=== PATIENT | female | born 1960 | race Caucasian/White ===

== ENCOUNTER 2019-10-08 05:55 | Inpatient (IN) ==
[2019-09-30 13:44] LABS: BASO# 0.01 X1000 (0.0-0.2); BASO% 0.1 % (0.0-0.8); EOS# 0.02 X1000 (0.0-0.7); EOS% 0.2 % (0.0-10.0); HEMATOCRIT 40.3 % (37.0-47.0); HEMOGLOBIN 13.2 g/dL (12.0-16.0); IMM GRAN# 0.02 X1000 (0.0-0.04); IMM GRAN% 0.2 % (0.0-0.5); LYMPH# 1.06 X1000 (1.2-3.4); MCH 28.8 PG (27-31); MCHC 32.8 g/dL (33-37); MCV 87.8 FL (81-99); MONO# 0.51 X1000 (0.11-0.59); MONO% 5.8 % (1.7-9.3); MPV 8.9 FL (7.4-10.4); NEUT% 81.7 % (42.2-75.2); PLT 253 X1000 (130-400); RBC 4.59 XMIL (4.2-5.4); RDW 13.8 % (11.5-14.5); WBC 8.82 X1000 (4.8-10.8)
--- NOTE | 2019-09-30 14:00 | EKG Report ---
Test Performed on : 09/30/2019 1:28:34 PM Test Reason : pat Blood Pressure : / mmHG Vent. Rate : 083 BPM Atrial Rate : 083 BPM P-R Int : 158 ms QRS Dur : 084 ms QT Int : 358 ms P-R-T Axes : 016 -14 027 degrees QTc Int : 420 ms Normal sinus rhythm. Normal ECG No previous ECGs available Unconfirmed Result
[2019-09-30 14:55] LABS: AGAP 12; ALB/GLOB RATIO 1.4; ALBUMIN 4.2 g/dL (3.5-5.0); ALKALINE PHOSPHATASE 173 U/L (32-104); BUN 15 mg/dL (8-22); CALCIUM 10.7 mg/dL (8.8-10.2); CHLORIDE 96 mmol/L (98-107); COSMO 280; CREATININE 0.8 mg/dL (0.5-0.9); ESTIMATED GFR > 60; GLUCOSE 194 mg/dL (70-104); GOT 22 U/L (10-30); GPT 9 U/L (10-36); POTASSIUM 4.4 mmol/L (3.5-5.1); SODIUM 137 mmol/L (136-145); TCO2 29 mmol/L (25-35); TOTAL BILIRUBIN 0.46 mg/dL (0.20-1.00); TOTAL PROTEIN 7.2 g/dL (6.3-8.3)
[2019-10-08] MEDS ORDERED: ENTEREG ONE (06:37)
[2019-10-08] MEDS ORDERED: PEPCID ONE (06:37)
[2019-10-08] MEDS ORDERED: REGLAN ONE (06:37)
[2019-10-08] MEDS ORDERED: INVANZ 1 GM/NS 1 GM/50 ML IVPB ONE (06:38)
[2019-10-08] MEDS ORDERED: LR 1,000 ML ONE ×2 (06:38→07:17)
[2019-10-08] MEDS ORDERED: DIPRIVAN 1% ONE (07:08)
[2019-10-08] MEDS ORDERED: EXPAREL 1.3% ONE (07:57)
[2019-10-08] MEDS ORDERED: MARCAINE 0.25% ONE (07:57)
[2019-10-08] MEDS ORDERED: DECADRON ONE (08:25)
[2019-10-08] MEDS ORDERED: DILAUDID ONE (08:25)
[2019-10-08] MEDS ORDERED: OFIRMEV 1000 MG/ISOTONIC SOLN 1,000 MG/100 ML BOTTLE ONE (08:25)
[2019-10-08] MEDS ORDERED: ZOFRAN ONE (08:25)
[2019-10-08] MEDS ORDERED: ZEMURON ONE (09:09)
[2019-10-08 09:29] LABS: URINE SOURCE CATH
[2019-10-08 09:35] LABS: COLOR YELLOW; GLUCOSE URINE NEGATIVE (NEGATIVE); TURBIDITY URINE CLEAR (CLEAR)
[2019-10-08 09:36] LABS: BILIRUBIN URINE SMALL (NEGATIVE); BLOOD URINE NEGATIVE (NEGATIVE); KETONE URINE 20 mg/dL (NEGATIVE); LEUKOCYTES URINE TRACE (NEGATIVE); NITRITE URINE NEGATIVE (NEGATIVE); PH URINE 5.5; PROTEIN URINE NEGATIVE (NEGATIVE); SP GRAVITY URINE > 1.030; UROBILINOGEN URINE NORMAL (NORMAL)
[2019-10-08 09:37] LABS: UR EPITHELIAL CELLS <10 /HPF (<10); URINE BACTERIA NEGATIVE /HPF; URINE RBC <10 /HPF (<10); URINE SMALL ROUND CELLS NONE SEEN; URINE WBC <10 /HPF (<10); URINE YEAST NONE SEEN
[2019-10-08] MEDS ORDERED: ROBINUL ONE (11:11)
[2019-10-08] MEDS ORDERED: NEOSTIGMINE ONE (11:11)
[2019-10-08] MEDS ORDERED: TORADOL ONE (11:13)
[2019-10-08] MEDS ORDERED: ZOFRAN IV PRN (12:52)
[2019-10-08] MEDS: LR 1,000 ML IV SCH ×2 (12:55→22:14)
[2019-10-08] MEDS: ULTRAM PO PRN ×2 (13:58→22:13)
[2019-10-08] MEDS: OFIRMEV 1000 MG/ISOTONIC SOLN 1,000 MG/100 ML BOTTLE IV SCH ×2 (17:08→22:14)
--- NOTE | 2019-10-08 21:38 | OPERATIVE NOTE ---
PROCEDURE DATE: 10/08/2019 PREOPERATIVE DIAGNOSIS: Metastatic right colon cancer. POSTOPERATIVE DIAGNOSES: Metastatic right colon cancer. PROCEDURE PERFORMED: 1. Robot-assisted laparoscopic right colectomy. 2. Laparoscopic wedge resection of segment IV liver lesion. SURGEON: Devan Richard MD. ESTIMATED BLOOD LOSS: 20 mL. SPECIMENS: 1. Right colon. 2. Portion of segment IV of liver. 3. Ascitic fluid for cytology. ANESTHESIA: General with TAP block. INDICATIONS: A 58-year-old female who was found to have a right colon mass. She had some changes in her bowel movements, bleeding, and staging CT scan showed numerous large right hepatic lesions concerning for metastasis. OPERATIVE FINDINGS: There was approximately 800 mL of straw-colored ascites within the abdomen. There was bulky tumor noted within the right lobe of the liver. The left lobe appeared normal. There were no peritoneal implants. There was a visualized mass in the proximal right colon/cecum. OPERATIVE NOTE: Risks, benefits, and alternatives were discussed with the patient, and she consented to the procedure. Seen preoperatively, surgical site was confirmed. She was taken to the operating room, placed in supine position, general anesthesia was induced. A TAP block was performed by Anesthesia colleagues. Preincision antibiotics were administered. Her abdomen was prepped with chlorhexidine solution and draped in the usual fashion. After time-out, we planned our camera trocar just superior and left lateral to the umbilicus, approximately 23 cm from the target anatomy. We carried this down incising the anterior rectus sheath, splitting the fibers. We incised the posterior sheath and placed the camera trocar. We then insufflated the abdomen. She tolerated this well. There was no injury to underlying structures. We then placed a 12 mm robotic trocar in the left upper quadrant and another robotic trocar just left lateral to the midline, lateral to the falciform ligament, below the costal margin. Accessory 5 mm trocar was placed in the left lower quadrant and another robotic trocar was placed in the lower midline of the abdomen. She was then flexed and placed in left side down in slight Trendelenburg. We identified the terminal ileum and cecum. We elevated this, identifying the pedicle, and using the vessel sealer, we divided the pedicle highly. We continued our czlffg-kr-lbdegyg dissection, protecting the duodenum, identifying this along the course, and completing the thdkqw-[id number] dissection. At this point, we carried our mesenteric dissection up to the terminal ileum to our planned transection point, and then turned our attention to the distal transverse colon. We entered the lesser sac, taking the omentum off and took down the hepatic flexure lateral attachments. Stapler was used to divide the terminal ileum. We then encircled the transverse colon distally with a [place] drain. At this point, we administered Firefly Fluorescence and confirmed adequate perfusion of our distal ileum and our distal transection point of the colon. At this point, 2 fires of blue-load robotic stapler were used to divide the distal colon. This completed our resection in an antiperistaltic fashion, we approximated the ileum with the transverse colon. Epiploic appendages were removed with hot artem. A colotomy and enterotomy were made, and then stapled adjy-gy-dktk anastomosis was performed with a 45 mm blue-load stapler. We then closed the common enterotomy after identifying the corners, with a running 3-0 absorbable V-Loc suture, and then ran it in a retrograde fashion, imbricating the suture line. The anastomosis was patent, was well perfused, and there was no tension whatsoever. At this point, we turned our attention to segment IV of liver using hot artem, and placed the Bovie on 50 and we excised a computer help desk representative wedge resection of the bulky right-sided liver lesion. It was also noted at the beginning of the case, we suctioned out the clear ascites and sent this for cytology. We removed the liver biopsy. A locking laparoscopic clamp was placed on the terminal ileum side. We extended our camera trocar, desufflated, and removed the trocars. After Solo wound protector was placed, we removed as specimen, passing it off. The specimen extraction site was closed with #1 PDS suture. The skin was closed with 4-0 Monocryl. Dermabond was applied. Counts were correct. She tolerated it well. During the case, all of the retroperitoneal structures were protected along their course. cc: Devan Richard MD
[2019-10-08] MEDS: PERIDEX MT SCH (22:13)
[2019-10-09] MEDS: OFIRMEV 1000 MG/ISOTONIC SOLN 1,000 MG/100 ML BOTTLE IV SCH ×2 (03:12→09:57)
[2019-10-09 07:22] LABS: HEMATOCRIT 35.6 % (37.0-47.0); HEMOGLOBIN 11.9 g/dL (12.0-16.0); MCH 29.4 PG (27-31); MCHC 33.4 g/dL (33-37); MCV 87.9 FL (81-99); MPV 8.9 FL (7.4-10.4); RBC 4.05 XMIL (4.2-5.4); RDW 14.1 % (11.5-14.5); WBC 11.01 X1000 (4.8-10.8)
[2019-10-09 07:48] LABS: AGAP 11; BUN 13 mg/dL (8-22); CALCIUM 9.3 mg/dL (8.8-10.2); CHLORIDE 97 mmol/L (98-107); COSMO 269; CREATININE 0.8 mg/dL (0.5-0.9); ESTIMATED GFR > 60; GLUCOSE 106 mg/dL (70-104); POTASSIUM 4.5 mmol/L (3.5-5.1); SODIUM 134 mmol/L (136-145); TCO2 26 mmol/L (25-35)
[2019-10-09] MEDS: PERIDEX MT SCH ×2 (08:15→21:55)
[2019-10-09] MEDS: LOVENOX SUBQ SCH (08:15)
[2019-10-09] MEDS: ENTEREG PO SCH ×2 (08:16→21:56)
[2019-10-09] MEDS: MAG-OX PO SCH (08:16)
[2019-10-09] MEDS: LR 1,000 ML IV SCH ×4 (09:06→23:26)
--- NOTE | 2019-10-09 13:42 | PROGRESS NOTE ---
DATE: 10/09/2019 SUBJECTIVE: Kasie Moreno is now postop day one from a robotic right colon resection per Dr. Richard for colon cancer. She is awake, cooperative. She has been up. She still has a Chen catheter tube in place. She is receiving IV fluids and clear liquids. All her incisions are intact. Her abdomen is slightly distended, but not tightly so, and overall I think she is doing well status post robotic right colon resection. cc: MD Devan Aden MD
[2019-10-09] MEDS: ULTRAM PO PRN (19:03)
[2019-10-09] MEDS ORDERED: FLU VACCINE IM ONE (21:03)
[2019-10-10] MEDS: MAG-OX PO SCH (08:37)
[2019-10-10] MEDS: PERIDEX MT SCH ×2 (08:37→22:06)
[2019-10-10] MEDS: LOVENOX SUBQ SCH (08:38)
[2019-10-10] MEDS: ENTEREG PO SCH (08:38)
[2019-10-10] MEDS: LR 1,000 ML IV SCH ×2 (10:16→19:50)
--- NOTE | 2019-10-10 11:59 | PROGRESS NOTE ---
DATE: 10/10/2019 Ms. Kasie Moerno is a 58-year-old white female who is now postop day 2 from a robotic-assisted right colon per Dr. Richard. Overall, I think her postoperative convalescence has been normal. She has been on clear liquids. She has tolerated that. She has had some bowel activity, and so I will advance her diet to a heart healthy diet. Will stop her Entereg. We have decreased her IV fluids. Her abdomen is mostly soft. There is no undue tenderness. Her heart rate is 78, blood pressure 120/68, O2 saturation 96%, she is afebrile on no antibiotics. cc: MD Devan Aden MD
[2019-10-10] MEDS: ULTRAM PO PRN (12:08)
[2019-10-11] MEDS: LR 1,000 ML IV SCH (06:48)
[2019-10-11] MEDS: PERIDEX MT SCH (08:42)
[2019-10-11] MEDS: MAG-OX PO SCH (08:42)
[2019-10-11] MEDS: LOVENOX SUBQ SCH (08:42)
[2019-10-11 12:08] VITALS: BP 121/66
[2019-10-11] MEDS: ULTRAM PO PRN (13:04)
--- NOTE | 2019-10-12 15:32 | DISCHARGE SUMMARY ---
ADMISSION DATE: 10/08/2019 DISCHARGE DATE: 10/11/2019 ADMITTING DIAGNOSIS: Metastatic colon cancer of the right colon. POSTOP: Metastatic colon cancer of the right colon. PROCEDURE PERFORMED: Robot assisted laparoscopic right hemicolectomy with liver biopsy. HISTORY OF PRESENT ILLNESS: This is a 58-year-old female who was found to have a large right colon mass with right-sided hepatic metastasis. She had impending obstruction, obstructive symptoms, and intermittent bleeding. HOSPITAL COURSE: The patient was taken to the operating room on the day of her procedure, which was 10/08/2019 for above procedure. For details, please see dictated record. Postoperatively, she was admitted to my service. Chen was removed on postop day 1. She was started on prophylactic Lovenox. On postoperative day 1, her postoperative labs were appropriate. We advanced her diet. She was able ambulate and pain was controlled with Ofirmev and Ultram. She is voiding without difficulty. She had return of bowel function on postop day 2 and was felt safe for discharge. On day 3, her incisions were intact. She did have some bruising around her lower midline incision, but the expected amount. Pathology is pending. DISPOSITION: Home to self-care. Discharge instructions were given in written and verbal format. DISCHARGE MEDICATION: She will continue her home medication and was given a prescription for Ultram and Zofran. DISCHARGE DIET: GI soft as tolerated. cc: Devan Richard MD
== END 2019-10-11 14:42 | disposition home or self-care (01) | DRG 330 ==
LOC: SURHOLD 05:55 → 4N 12:52
PROVIDERS: ADMIT Surgery; ATTEND Surgery

== ENCOUNTER 2019-12-19 09:37 | Inpatient (IN) ==
[2019-12-19] MEDS ORDERED: NS 1,000 ML IV ONE (10:12)
--- NOTE | 2019-12-19 10:53 | Diag Imaging Result Doc PS360 ---
CHEST-1 VIEW - 12/19/2019 INDICATION: "sepsis" COMPARISON: 10/18/2019 FINDINGS: There is a right chest port in good position. Lung volumes are critically low with some bibasilar crowding. Otherwise, no definite infiltrates. Heart size and pulmonary vascularity is normal. IMPRESSION: Critically low lung volumes with bibasilar crowding. Electronically signed by Jevon Chino 12/19/2019 10:50 AM
[2019-12-19 11:01] LABS: BASO# 0.05 X1000 (0.0-0.2); BASO% 0.4 % (0.0-0.8); EOS# 0.01 X1000 (0.0-0.7); EOS% 0.1 % (0.0-10.0); HEMATOCRIT 35.3 % (37.0-47.0); HEMOGLOBIN 11.3 g/dL (12.0-16.0); IMM GRAN# 0.07 X1000 (0.0-0.04); IMM GRAN% 0.6 % (0.0-0.5); LYMPH% 14.7 % (20.5-51.1); MCH 26.5 PG (27-31); MCV 82.9 FL (81-99); MONO% 10.6 % (1.7-9.3); MPV 8.6 FL (7.4-10.4); NEUT# 8.98 X1000 (1.4-6.5); NEUT% 73.6 % (42.2-75.2); PLT 508 X1000 (130-400); RBC 4.26 XMIL (4.2-5.4); RDW 17.5 % (11.5-14.5); WBC 12.21 X1000 (4.8-10.8)
[2019-12-19 11:12] LABS: INR 1.57; PROTIME 19.1 Seconds (11.0-16.0)
[2019-12-19 11:13] LABS: PTT 33.7 Seconds (22.3-41.8)
[2019-12-19 11:25] LABS: AGAP 14; ALBUMIN 2.8 g/dL (3.5-5.0); ALKALINE PHOSPHATASE 331 U/L (32-104); BUN 21 mg/dL (8-22); CHLORIDE 94 mmol/L (98-107); CK PROFILE 16 U/L (24-173); COSMO 271; CREATININE 0.8 mg/dL (0.5-0.9); ESTIMATED GFR > 60; GLUCOSE 133 mg/dL (70-104); GOT 52 U/L (10-30); GPT 29 U/L (10-36); POTASSIUM 4.2 mmol/L (3.5-5.1); SODIUM 133 mmol/L (136-145); TCO2 25 mmol/L (25-35); TOTAL BILIRUBIN 0.69 mg/dL (0.20-1.00); TOTAL PROTEIN 5.6 g/dL (6.3-8.3)
--- NOTE | 2019-12-19 12:33 | Diag Imaging Result Doc PS360 ---
CT ABD/PELVIS W/IV CONT ONLY - 12/19/2019 INDICATION: hx colon resection, no BM COMPARISON: 09/13/2019 FINDINGS: There is some mild patchy atelectasis in both lung bases. There is some sort of drainage catheter in the peritoneum terminating in the right lower quadrant. In spite of this, there is a moderate to large amount of ascites. There are numerous large hypoenhancing liver masses similar to prior. About 40% of the liver parenchyma is replaced. The liver is overall atrophic. There is significant splenomegaly. The spleen measures 15 x 5.5 cm. The splenic vein, main portal vein, and superior mesenteric vein are patent. The middle hepatic vein is most likely occluded by the metastases. The left and right hepatic veins appear to be grossly patent. No bowel obstruction or free air. No significant constipation. There are bowel resection changes at the right colon. Urinary bladder, uterus, and rectum are normal. There is moderate retroperitoneal lymphadenopathy similar to prior. There are moderate degenerative changes of the spine. No acute or suspicious bony lesion. IMPRESSION: Worsening ascites despite a peritoneal drain. Numerous other findings are grossly stable from prior. No bowel obstruction or significant constipation. This exam was performed using automated exposure control, adjustment of mA or kV according to patient size, and/or use of iterative reconstruction technique Electronically signed by Jevon Chino 12/19/2019 12:31 PM
[2019-12-19] MEDS ORDERED: NS 1,000 ML, NS 1,000 ML IV ONE ×2 (12:53)
[2019-12-19 14:15] LABS: URINE SOURCE CLEAN CATCH
[2019-12-19] MEDS ORDERED: NS 1,000 ML ONE (14:18)
[2019-12-19 14:23] LABS: BILIRUBIN URINE NEGATIVE (NEGATIVE); BLOOD URINE NEGATIVE (NEGATIVE); COLOR YELLOW; GLUCOSE URINE NEGATIVE (NEGATIVE); KETONE URINE NEGATIVE (NEGATIVE); LEUKOCYTES URINE NEGATIVE (NEGATIVE); NITRITE URINE NEGATIVE (NEGATIVE); PROTEIN URINE TRACE mg/dL (NEGATIVE); TURBIDITY URINE CLEAR (CLEAR); UROBILINOGEN URINE NORMAL (NORMAL)
[2019-12-19 14:25] LABS: UR EPITHELIAL CELLS <10 /HPF (<10); URINE BACTERIA NEGATIVE /HPF; URINE RBC <10 /HPF (<10); URINE WBC <10 /HPF (<10)
--- NOTE | 2019-12-19 15:37 | PROVIDER DOCUMENTATION ---
This chart was entered by Shalonda Cleary Scribe, acting as scribe for Kendall Alcantara MD. HPI-General Adult - General Chief Complaint: Weakness Stated Complaint: NO ENERGY CONSTIPATED Time Seen by Provider: 12/19/19 09:56 Source: patient, family () Allergies/Adverse Reactions: Patient Allergies Allergy/AdvReac Type Severity Reaction Status Date / Time No Known Allergies Allergy Verified 12/07/19 09:48 Home Medications: Home Medication List Medication Instructions Recorded Confirmed Last Taken Type Zolpidem [Ambien] 5 mg PO QHS 09/30/19 12/07/19 12/06/19 History Ondansetron [Zofran] 4 mg PO Q4H PRN PRN #10 tab 10/11/19 12/07/19 12/07/19 06:30 Rx Tramadol [Ultram] 50 mg PO Q6H PRN PRN #30 tab 10/11/19 12/07/19 1 Week Ago Rx ~11/19/19 Amlodipine [Norvasc] 5 mg PO DAILY 12/03/19 12/07/19 12/07/19 06:30 History Hydrocodone/Acetaminophen [[place] 1 ea PO PRN PRN 12/03/19 12/07/19 12/07/19 06:30 History 7.5-325 Tablet] - History of Present Illness -Gen Adult Nature of Presenting Problems: 58 y/o female with history of Cancer of the bile duct and recent history of partial colectomy in 08/2019 presents to the ED with c/o increasing weakness and constipation times three days. states he has had to lift the patient to her feet several times. The patient also states abdominal pain with constipation with unknown timing of last BM as well as increasing SOB. She states she took two stool softeners Friday, 2 laxatives Friday and then 2 stool softeners today without BM. NKDA. Location of Pain/Injury: reports: abdomen, generalized Onset/Duration: reports: 3 days ago (worsening) Timing: reports: getting worse Context/Activities at Onset: reports: light activity Associated Symptoms: reports: constipation, shortness of breath, weakness, trouble walking. denies: fever/chills, vomiting Review of Systems - Adult - REVIEW OF SYSTEMS - ADULT Constitutional: reports: fatique, other (increasing weakness). denies: chills, fever Eyes: reports: no symptoms reported Ears, Nose, Mouth & Throat: reports: no symptoms reported Cardiovascular: denies: chest pain, palpitations, syncope Respiratory: reports: shortness of breath. denies: hemoptysis, wheezing Gastrointestinal: reports: constipation. denies: diarrhea, nausea, vomiting Genitourinary: denies: dysuria, discharge, frequency, hematuria Musculoskeletal: reports: no symptoms reported Integumentary: reports: no symptoms reported Neurological: reports: ataxia, other (increasing weakness). denies: dizziness/vertigo, headache/migraines, slurred speech, syncope Psychiatric: reports: no symptoms reported Endocrine: reports: no symptoms reported Hematologic/Lymphatic: reports: no symptoms reported Allergic/Immunologic: reports: no symptoms reported All Other Systems: Reviewed and Negative Past History - Adult - PAST MEDICAL HISTORY-ADULT Review of Records: reports: Old Records Reviewed, Nursing Assessment Review, Medications Reviewed - IMMUNIZATION STATUS Childhood Immunizations: See Nurse Assessment Flu Vaccine: See Nurse Assessment - SOCIAL HISTORY Smoking: non-smoker Living Situation: family Physical Exam-General - PHYSICAL EXAM-ADULT Initial Vital Signs Reviewed: Yes - CONSTITUTIONAL General Appearance: alert. negative: appears well - EYES Eyes: pale conjunctivae - RESPIRATORY Respiratory: lungs clear, normal breath sounds. negative: rhonchi, wheezing - CARDIOVASCULAR Cardiovascular: no edema, tachycardia - GASTROINTESTINAL (ABDOMEN) Abdominal Exam: abnormal bowel sounds (decreased), distended, other (bandage in place left lower quadrant) - SKIN Integumentary: negative: diaphoresis - NEUROLOGIC Neurologic: grossly normal Progress - PLAN OF CARE/RESULTS Progress/Plan/Lab Results: Vital Signs - 8 hr 12/19/19 09:41 Temperature 97.9 F Pulse Rate 121 H Respiratory Rate 20 Blood Pressure 106/69 O2 Sat by Pulse Oximetry 98 Result Diagrams: 12/19/19 10:35 12/19/19 10:35 - EKG 1 Time of EKG reading by physician:: 10:28 EKG Read and Signed by:: Kendall Alcantara EKG Interpretation (*Must complete 3 of following elements*): Abnormal Rate: 108 Rhythm: sinus tachycardia Comments: low voltage QRS,inferior & possible anterolateral infarct age undetermined - XRAY 1 XRAY Study: Chest Impression: Abnormal (CHEST-1 VIEW - 12/19/2019 INDICATION: "sepsis" COMPARISON: 10/18/2019 FINDINGS: There is a right chest port in good position. Lung volumes are critically low with some bibasilar crowding. Otherwise, no definite infiltrates. Heart size and pulmonary vascularity is normal. IMPRESSION: Critically low lung volumes with bibasilar crowding. Electronically signed by Jevon Chino 12/19/2019 10:50 AM) - CT/MRI 1 CT Study: Abdomen, Pelvis Impression: Abnormal (CT ABD/PELVIS W/IV CONT ONLY - 12/19/2019 INDICATION: hx colon resection, no BM COMPARISON: 09/13/2019 FINDINGS: There is some mild patchy atelectasis in both lung bases. There is some sort of drainage catheter in the peritoneum terminating in the right lower quadrant. In spite of this, there is a moderate to large amount of ascites. There are numerous large hypoenhancing liver masses similar to prior. About 40% of the liver parenchyma is replaced. The liver is overall atrophic. There is significant splenomegaly. The spleen measures 15 x 5.5 cm. The splenic vein, main portal vein, and superior mesenteric vein are patent. The middle hepatic vein is most likely oc cluded by the metastases. The left and right hepatic veins appear to be grossly patent. No bowel obstruction or free air. No significant constipation. There are bowel resection changes at the right colon. Urinary bladder, uterus, and rectum are normal. There is moderate retroperitoneal lymphadenopathy similar to prior. There are moderate degenerative changes of the spine. No acute or suspicious [place] lesion. IMPRESSION: Worsening ascites despite a peritoneal drain. Numerous other findings are grossly stable from prior. No bowel obstruction or significant constipation. This exam was performed using automated exposure control, adjustment of mA or kV according to patient size, and/or use of iterative reconstruction technique Electronically signed by Jevon Chino 12/19/2019 12:31 PM) - CONSULTS/PCP/HOSPITALIST Notification #1 *Consult/PCP/Hospitalist*: Hospitalist Time Discussed: 15:30 Consult Disposition: Will see in ED, Admit Departure - Departure Date of Disposition Decision: 12/19/19 Time of Disposition Decision: 14:45 DIAGNOSIS: Weakness, Bile duct cancer Disposition: ADMITTED INPATIENT 09 Certified Medical Emergency: Emergent Condition: Fair Referrals and Follow-Ups: Esvin Richard MD [Primary Care Provider] - - Critical Care Note This patient required my direct & personal management of CC.: No Attestation - Physician/ GIULIANO Attestation Patient care was provided by Advanced Practice Provider:: No The physician spent face to face time with patient:: Yes Advanced Practice Provider documentation review:: Supervising physician onsite and consulted in the evaluation and care of this patient. The physician did have a face to face encounter with the patient. This chart was documented by the indicated scribe, (Shalonda Cleary, Br[place]) and accurately reflects the services I performed and decisions made by me, Kendall Alcantara MD, as attested by the provider's signature.
[2019-12-19] MEDS ORDERED: DULCOLAX PR ONE (15:51)
[2019-12-19 16:49] LABS: BASO# 0.04 X1000 (0.0-0.2); BASO% 0.4 % (0.0-0.8); EOS# 0.04 X1000 (0.0-0.7); EOS% 0.4 % (0.0-10.0); HEMATOCRIT 31.4 % (37.0-47.0); HEMOGLOBIN 10.1 g/dL (12.0-16.0); IMM GRAN# 0.06 X1000 (0.0-0.04); IMM GRAN% 0.6 % (0.0-0.5); LYMPH# 2.49 X1000 (1.2-3.4); LYMPH% 22.9 % (20.5-51.1); MCH 26.7 PG (27-31); MCHC 32.2 g/dL (33-37); MCV 83.1 FL (81-99); MONO# 1.36 X1000 (0.11-0.59); MONO% 12.5 % (1.7-9.3); MPV 8.3 FL (7.4-10.4); NEUT# 6.88 X1000 (1.4-6.5); NEUT% 63.2 % (42.2-75.2); PLT 463 X1000 (130-400); RBC 3.78 XMIL (4.2-5.4); RDW 17.5 % (11.5-14.5); WBC 10.87 X1000 (4.8-10.8)
[2019-12-19] MEDS ORDERED: ZOFRAN IV PRN (16:53)
[2019-12-19] MEDS ORDERED: ALBUMIN 25% IV ONE (16:54)
[2019-12-19] MEDS ORDERED: NON-FORMULARY BULK MED ONE (18:15)
[2019-12-19] MEDS ORDERED: MISC. PHARMACY COMMUNICATION SCH (18:15)
[2019-12-19] MEDS: MYCELEX TROCHE PO SCH ×2 (18:59→20:56)
--- NOTE | 2019-12-19 19:33 | HISTORY AND PHYSICAL ---
ADDENDUM: Patient seen and examined by me face to face, all the laboratory, vital signs and images were reviewed. This patient is a 58-year-old female with a past medical history of pancreatobiliary carcinoma, she recently had a surgery done in August 2019, she has been complaining of abdominal distention, constipation and generalized weakness, she has a drain that has been placed on her abdomen and we are trying to do to do some drainage of the ascitic fluid but the problem is that we are looking for the special bottles for that kind of drain that she has, in the other hand she has some stools, we will try to give her an enema to see if that helps, we have consulted Dr. Turcios. Apparently she has an appointment for chemotherapy tomorrow morning. On my physical exam, her abdomen is distended. She is jaundiced. She does have generalized weakness and generalized abdominal pain, is at the bedside. I agree with the rest of the nurse practitioner's assessment and plan. cc: Nir Ponce MD
--- NOTE | 2019-12-19 21:24 | HISTORY AND PHYSICAL ---
CHIEF COMPLAINT: Weakness, constipation. HPI: This is a 58-year-old female with a prior history of metastatic colon cancer to the liver who is receiving chemotherapy per Dr. Genia Turcios. She presents complaining of generalized weakness, constipation that began 3 days ago despite a bowel regimen. She states that she had 1 small hard stool last night. She also complains of abdominal distention secondary to ascites, she underwent a ultrasound guided paracentesis on November 05 for 5 L of fluid removed, on the 26 of November she underwent another ultrasound-guided paracentesis for 7 L removed, on the she had a ultrasound-guided peritoneal drainage catheter placed to remove the fluid at home. The patient states that insurance will not pay for the bottles and that it is 1000 dollars for either 9 or [address] Turcios's office did give her 9 bottles and they have been removing a liter twice a week in hopes that Dr. Turcios will be able to they state that Dr. Turcios's office is attempting to talk to the insurance company to see if they can get them change their mind to pay for the bottles. PAST MEDICAL HISTORY: 1. Metastatic colon cancer to the liver. 2. Hypertension. 3. Fibromyalgia. PAST SURGICAL HISTORY: Colon resection. SOCIAL HISTORY: She is . She denies alcohol, tobacco, or illicit drug use. ALLERGIES: No stated allergies. HOME MEDICATIONS: A list will be obtained by the nursing staff and once verified will review and restart as appropriate. REVIEW OF SYSTEMS: Discussed with the patient with pertinent positives stated in the HPI. She denied any syncope or dizziness. Any chest pain or palpitations, any cough, fevers or chills, any nausea, vomiting, any diarrhea, any black or bloody vomitus or stools, hematuria, dysuria, frequency urgency. PHYSICAL EXAMINATION: GENERAL: This is a 58-year-old female who is lying on the stretcher in no distress. VITAL SIGNS: Blood pressure is 103/80 with a heart rate of 100, respirations are 16, temperature is 97.9 degrees with O2 saturations 98 on room air. HEENT: Head is normocephalic, atraumatic. Mucous membranes are dry. NECK: Supple with trachea midline. CARDIOVASCULAR: Regular rate and rhythm. She is tachycardic, S1 and S2 appreciated. Peripheral pulses are palpable x4 extremities. PULMONARY: Breath sounds are clear with no increased work of breathing. Chest rises and falls symmetric respiration. GASTROINTESTINAL: Abdomen large with bowel sounds decreased. She does have a bandage that is dry and intact to as. NEUROLOGIC: She is alert and oriented. LABS: WBC is 12.2 with hemoglobin 11.3, hematocrit 35.3 and platelets of 508,000. INR is 1.57. Sodium 133, potassium 4.2, BUN 21, creatinine 0.8, glucose of 133, albumin is 2.8. Urinalysis is essentially negative. Blood cultures are pending. ASSESSMENT AND PLAN: 1. Constipation. 2. Generalized weakness. 3. Metastatic right colon cancer, liver cancer. 4. Ascites. PLAN: The patient will be admitted to the hospital. We will be placed on telemetry for close monitoring. Keep a strict I and O, will review her home medications and continue as appropriate adding Zofran for nausea. We will check a CBC, CMP, mag and phosphorus in the morning. We will consult [facility] as well as Dr. Turcios. We are attempting to find bottles that will fit the patient's shunt so that she can drain her abdomen. Once bottles are available the patient and can drain her abdomen, we have ordered albumin to be given prior to this. Plan was discussed with Dr. Stallworth. Further treatments pending hospital course. Dictated by NINA Ruiz for Nir Ponce MD cc: NINA Ruiz MD
[2019-12-20] MEDS ORDERED: VANCOMYCIN IV PER PHARMACY MISC SCH (01:00)
[2019-12-20] MEDS ORDERED: VANCOMYCIN 1,800 MG in NS 500 ML IV ONE (02:00)
[2019-12-20 07:26] LABS: BASO# 0.02 X1000 (0.0-0.2); BASO% 0.3 % (0.0-0.8); EOS# 0.01 X1000 (0.0-0.7); EOS% 0.1 % (0.0-10.0); HEMATOCRIT 28.3 % (37.0-47.0); HEMOGLOBIN 8.8 g/dL (12.0-16.0); IMM GRAN# 0.03 X1000 (0.0-0.04); IMM GRAN% 0.4 % (0.0-0.5); LYMPH# 1.41 X1000 (1.2-3.4); LYMPH% 19.5 % (20.5-51.1); MCH 26.3 PG (27-31); MCHC 31.1 g/dL (33-37); MCV 84.5 FL (81-99); MONO# 0.73 X1000 (0.11-0.59); MONO% 10.1 % (1.7-9.3); MPV 8.3 FL (7.4-10.4); NEUT# 5.02 X1000 (1.4-6.5); NEUT% 69.6 % (42.2-75.2); PLT 449 X1000 (130-400); RBC 3.35 XMIL (4.2-5.4); RDW 17.5 % (11.5-14.5); WBC 7.22 X1000 (4.8-10.8)
--- NOTE | 2019-12-20 07:41 | EKG Report ---
Test Performed on : 12/19/2019 10:20:08 AM Test Reason : ED. NO EKG ORDER FOR MUSE Blood Pressure : / mmHG Vent. Rate : 108 BPM Atrial Rate : 108 BPM P-R Int : 144 ms QRS Dur : 078 ms QT Int : 330 ms P-R-T Axes : 016 -26 011 degrees QTc Int : 442 ms Sinus tachycardia. Low voltage QRS Inferior infarct , age undetermined Possible Anterolateral infarct , age undetermined Abnormal ECG When compared with ECG of 30-SEP-2019 13:28, Borderline criteria for Anterolateral infarct are now present No significant change was found Unconfirmed Result
[2019-12-20 07:42] LABS: AGAP 11; ALB/GLOB RATIO 1.4; ALKALINE PHOSPHATASE 219 U/L (32-104); BUN 16 mg/dL (8-22); CALCIUM 8.6 mg/dL (8.8-10.2); CHLORIDE 101 mmol/L (98-107); COSMO 276; CREATININE 0.6 mg/dL (0.5-0.9); ESTIMATED GFR > 60; GLUCOSE 125 mg/dL (70-104); GOT 24 U/L (10-30); GPT 18 U/L (10-36); MAGNESIUM 1.9 mg/dL (1.5-2.7); PHOSPHORUS 2.8 mg/dL (2.7-4.5); POTASSIUM 3.5 mmol/L (3.5-5.1); SODIUM 137 mmol/L (136-145); TCO2 25 mmol/L (25-35); TOTAL BILIRUBIN 0.73 mg/dL (0.20-1.00); TOTAL PROTEIN 5.1 g/dL (6.3-8.3)
[2019-12-20] MEDS: MYCELEX TROCHE PO SCH ×5 (09:33→20:56)
[2019-12-20] MEDS: ZYVOX 600 MG/D5W 600 MG/300 ML IVPB IV SCH ×2 (10:56→20:56)
[2019-12-20] MEDS ORDERED: DULCOLAX PR PRN (12:54)
--- NOTE | 2019-12-20 13:19 | PROGRESS NOTE ---
DATE: 12/20/2019 SUBJECTIVE: This patient feels better compared with yesterday. She still has abdominal distention. Two liters of fluid has been removed yesterday. We need to find out options to remove this fluid from her belly. We may need to use a large syringe instead of finding the bottles for her. Hematology/Oncology Department on board. It looks like she also was constipated, and she feels better now after getting some enemas. I will put her on MiraLAX daily, and I will monitor. OBJECTIVE: Vital Signs: Temperature 97.8 degrees, pulse 101, respiratory rate 16, blood pressure 116/75, oxygen saturation 97% on room air. HEENT: Head normocephalic. No trauma. PERRLA. Neck: Supple. No JVD. No masses. Central trachea. Chest: Clear to auscultation. Some crepitus at the bases. Abdomen: Distended, but it is soft compared with yesterday. Decreased bowel sounds, but present. She does have ascites. Extremities: Trace edema. No clubbing, no cyanosis. Neurological: The patient is awake, alert. She is oriented x3. No focal deficits. LABORATORY DATA: WBC 7.2, hemoglobin 8.8, hematocrit 28.3, platelets 449,000. Sodium 137, potassium 3.5, chloride 101, bicarbonate 25, BUN 16, creatinine 0.6, glucose 125, calcium 8.6. AST 24, ALT 18, alkaline phosphatase 219, albumin 3. ASSESSMENT AND PLAN: 1. Abdominal distention and pain, likely due to her severe ascites. Two liters of fluid has been removed yesterday. She does have a catheter in place. The problem is that she cannot afford the special bottles for that kind of catheter. What I would probably do is to remove the fluid with a large syringe so she can get decompressed. 2. 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 We will wait for more recommendations. 3. Constipation, resolved after using some enemas. I will put this patient on MiraLAX and also suppositories as needed. 4. Normocytic anemia, stable. 5. Generalized weakness and physical deconditioning. Physical Therapy has been consulted. 6. Ascites, likely due to the metastatic cancer. 7. Blood culture that showed gram-positive cocci, 1/2. Likely, this is a contamination, but I will put this patient on Zyvox until I have the final result. cc: Nir Ponce MD
[2019-12-20] MEDS: MIRALAX PO SCH (15:06)
--- NOTE | 2019-12-20 19:42 | HEMO/ONC CONSULTATION ---
DATE: 12/20/2019 SOURCE OF CONSULTATION: Hospitalist service. REASON FOR CONSULTATION: Patient known. HISTORY OF PRESENT ILLNESS: Ms. 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 She is currently status post cycle 1 of cisplatin and Gemzar. Patient was actually due to begin cycle 2 of chemotherapy today. The patient presented to the emergency department at [facility] yesterday complaining of rather intense abdominal pain as well as generalized weakness. She was found to have impaction, which has now improved with the use of some enemas. She also had rather significant abdominal distention which was secondary to severe ascites. Patient is status post peritoneal catheter placement. However, she is having issues with draining the catheter due to not having enough bottles provided. She was in the office last week and we did recommend that she try to only pull off about a liter or so, maybe twice per week. Since being here, they have pulled off 2 L and got her bowels moving, and she is already feeling quite a bit better. PAST MEDICAL HISTORY: 1. 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 2. Hypertension. 3. Fibromyalgia. PAST SURGICAL HISTORY: Colon resection. SOCIAL HISTORY: Patient is . She denies any alcohol, tobacco, or illicit drug use. FAMILY HISTORY: Positive for breast cancer as well as fibromyalgia. REVIEW OF SYSTEMS: Twelve point review of systems has been completed and negative except for as expressed in HPI. PHYSICAL EXAMINATION: Vital Signs: Temperature 97.8 degrees, heart rate 101, respirations 16, blood pressure 116/75, O2 saturation 97% on room air. General: This is an ill- appearing female lying in the hospital bed with her at bedside. Head: Normocephalic, atraumatic. Eyes: Pupils equal, round, reactive. Ears, nose, throat, neck, mouth: Mucosa appears to be dry. Gross auditory acuity is intact. Cardiovascular: Tachycardia noted, but regular rhythm. Respiratory: Chest is clear. Abdomen: Distended with ascites, but is soft to touch at this point. She has normoactive bowel sounds noted. Musculoskeletal: No obvious bony abnormalities. Extremities: She has no edema. She has no ankle edema. Neurologic: Patient is alert and oriented with no focal motor deficits noted at this time. LABS AND STUDIES: White blood cells are 7.22, hemoglobin 8.8, platelet count is 449,000. Sodium 137, potassium 3.5, chloride 101, CO2 25, BUN 16, creatinine 0.6, glucose 125. CT of abdomen and pelvis shows worsening ascites, but otherwise is stable. ASSESSMENT AND PLAN: 1. Intrahepatic cholangiocarcinoma. We are treating the patient with cisplatin and Gemzar as an outpatient. Treatment will be on hold while she is here in the hospital. Overall, she has a poor prognosis. Once she is out, we will proceed with further chemotherapy as able. 2. Ascites. She does have a peritoneal catheter to drain as needed at home. She and her report that they are going to contact the insurance company themselves to see if they can get more drainage bulbs so that therefore she can drain her ascites maybe more frequently. 3. Constipation. Patient will need to do a daily bowel regimen once she is out. We will continue to monitor when she comes into the office. 4. Generalized weakness and deconditioning. This is in part due to her underlying disease. Agree with getting physical therapy. 5. Positive blood cultures showing gram-positive cocci. Likely contamination. Follow up on blood cultures. The primary team is covering her with Zyvox. We want to thank you for consulting us on Ms. Moreno. We will continue to follow along and adjust our treatment plan per her hospital course. Dictated by CHARLETTE Guy for Genia Turcios MD cc: Genia Turcios MD Pt seen and examined and above note reflects my history, physical exam, assessment and plan. Genia Turcios MD [facility]
[2019-12-20] MEDS ORDERED: AMBIEN PO SCH (21:00)
[2019-12-21] MEDS ORDERED: VANCOMYCIN 1,500 MG in NS 250 ML IV SCH (02:00)
[2019-12-21] MEDS: NORCO-5 PO PRN ×2 (07:22→21:30)
[2019-12-21 07:51] LABS: BASO# 0.09 X1000 (0.0-0.2); EOS# 0.03 X1000 (0.0-0.7); EOS% 0.3 % (0.0-10.0); HEMATOCRIT 34.3 % (37.0-47.0); HEMOGLOBIN 10.7 g/dL (12.0-16.0); IMM GRAN# 0.06 X1000 (0.0-0.04); IMM GRAN% 0.6 % (0.0-0.5); LYMPH% 17.3 % (20.5-51.1); MCH 26.6 PG (27-31); MCHC 31.2 g/dL (33-37); MCV 85.1 FL (81-99); MONO# 1.28 X1000 (0.11-0.59); MONO% 13.9 % (1.7-9.3); MPV 8.2 FL (7.4-10.4); NEUT# 6.18 X1000 (1.4-6.5); NEUT% 66.9 % (42.2-75.2); PLT 412 X1000 (130-400); RBC 4.03 XMIL (4.2-5.4); RDW 18.1 % (11.5-14.5); WBC 9.24 X1000 (4.8-10.8)
[2019-12-21 08:38] LABS: AGAP 15; ALB/GLOB RATIO 1.1; ALBUMIN 2.8 g/dL (3.5-5.0); ALKALINE PHOSPHATASE 243 U/L (32-104); BUN 13 mg/dL (8-22); CALCIUM 8.6 mg/dL (8.8-10.2); CHLORIDE 99 mmol/L (98-107); COSMO 268; CREATININE 0.7 mg/dL (0.5-0.9); ESTIMATED GFR > 60; GLUCOSE 134 mg/dL (70-104); GOT 30 U/L (10-30); GPT 18 U/L (10-36); POTASSIUM 4.1 mmol/L (3.5-5.1); SODIUM 133 mmol/L (136-145); TCO2 19 mmol/L (25-35); TOTAL BILIRUBIN 0.71 mg/dL (0.20-1.00); TOTAL PROTEIN 5.4 g/dL (6.3-8.3)
[2019-12-21] MEDS: MIRALAX PO SCH (09:27)
[2019-12-21] MEDS: MYCELEX TROCHE PO SCH ×5 (09:28→20:21)
[2019-12-21] MEDS: ZYVOX 600 MG/D5W 600 MG/300 ML IVPB IV SCH (11:28)
--- NOTE | 2019-12-21 14:56 | PROGRESS NOTE ---
DATE: 12/21/2019 SUBJECTIVE: The patient reports feeling fine. Reports some abdominal distention. She thinks that we need to remove fluid from the abdomen. Denies any fever or chills. OBJECTIVE: Vital Signs: Temperature 97.8, heart rate 100, respiratory rate 18, blood pressure 114/72, O2 saturation 95% on room air. General: This is a 58-year-old, chronically ill- appearing, female, lying in bed in no acute distress. Cardiovascular: S1, S2 heard. No murmurs, gallops, or rubs. Regular rate and rhythm. Respiratory: Clear bilaterally to auscultation. No work of breathing or using accessory muscles. Abdomen: Very distended. Decreased bowel sounds. Ascites noted. Extremities: Mild pitting edema, 1+. No clubbing or cyanosis. Neurological: The patient is alert and oriented x3. Moves all 4 extremities. LABORATORY DATA: Microbiology showed this Streptococcus mitis, Streptococcus oralis sensitive to Levaquin. ASSESSMENT AND PLAN: 1. Abdominal distention and pain due to her severe ascites. We are going to remove 2 liters of ascitic fluid today. The patient has a catheter in place. The problem is that she needs special bottles for this kind of catheter, and 9 of them is $1000 and she needs 4 per week. At this point, we are going to work with social work instructor to see what else we can do for this patient. That is basically one of the reason why she is staying here. 2. Metastatic pancreatobiliary carcinoma. Follow with Dr. Turcios at this point. We are going to hold any medical treatment from their standpoint until the patient is more stable. 3. Constipation. Will try lactulose today and see how she does. 4. General weakness and physical deconditioning. Physical Therapy has been consulted. Will follow recommendations. 5. Ascites. We are going to drain ascitic fluid today, 2 liters. 6. Streptococcus mitis infection. Will switch antibiotics to Levaquin, and will stop Zyvox. 7. Disposition. I think this patient is feeling much better. Medically, she should be able to go home tomorrow. cc: Baudilio Larios MD
[2019-12-21] MEDS: LACTULOSE PO SCH ×2 (20:22→20:24)
[2019-12-21] MEDS: LEVAQUIN 750 MG/D5W 750 MG/150 ML IVPB IV SCH (20:22)
[2019-12-21] MEDS: AMBIEN PO SCH (21:30)
[2019-12-22 07:48] LABS: BASO# 0.02 X1000 (0.0-0.2); BASO% 0.3 % (0.0-0.8); EOS# 0.03 X1000 (0.0-0.7); EOS% 0.4 % (0.0-10.0); HEMATOCRIT 31.9 % (37.0-47.0); IMM GRAN# 0.06 X1000 (0.0-0.04); IMM GRAN% 0.8 % (0.0-0.5); LYMPH# 1.41 X1000 (1.2-3.4); LYMPH% 19.1 % (20.5-51.1); MCH 26.5 PG (27-31); MCHC 31.3 g/dL (33-37); MCV 84.4 FL (81-99); MONO# 1.15 X1000 (0.11-0.59); MONO% 15.5 % (1.7-9.3); MPV 8.3 FL (7.4-10.4); NEUT# 4.73 X1000 (1.4-6.5); NEUT% 63.9 % (42.2-75.2); PLT 384 X1000 (130-400); RBC 3.78 XMIL (4.2-5.4); RDW 17.9 % (11.5-14.5)
[2019-12-22 08:07] LABS: AGAP 12; ALB/GLOB RATIO 0.9; ALBUMIN 2.5 g/dL (3.5-5.0); ALKALINE PHOSPHATASE 252 U/L (32-104); BUN 15 mg/dL (8-22); CALCIUM 8.3 mg/dL (8.8-10.2); CHLORIDE 95 mmol/L (98-107); COSMO 263; CREATININE 0.8 mg/dL (0.5-0.9); ESTIMATED GFR > 60; GLUCOSE 115 mg/dL (70-104); GOT 24 U/L (10-30); GPT 17 U/L (10-36); POTASSIUM 4.2 mmol/L (3.5-5.1); SODIUM 130 mmol/L (136-145); TCO2 23 mmol/L (25-35); TOTAL BILIRUBIN 0.54 mg/dL (0.20-1.00); TOTAL PROTEIN 5.2 g/dL (6.3-8.3)
--- NOTE | 2019-12-22 08:49 | PROGRESS NOTE ---
DATE: 12/22/2019 SUBJECTIVE: Patient reports feeling fine. The day before yesterday she had a big bowel movement. She reports less abdominal distention. They removed 2 liters of fluid yesterday. OBJECTIVE: Vital Signs: Temperature 97.9 degrees, heart rate 90, respiratory rate 18, blood pressure 120/75, O2 saturation 99% on room air. General: This is a chronically ill-appearing 58-year-old female lying in bed in no acute distress. Cardiovascular: S1, S2 heard. No murmurs, gallops, or rubs. Regular rate and rhythm. Respiratory: Clear bilaterally to auscultation. No work of breathing or using accessory muscles. Abdomen: Distended, mild ascites noted. Extremities: Mild pedal edema 1+. No clubbing or cyanosis noted. Neurological: Patient alert and oriented x3. Moves all 4 extremities. LABORATORY DATA: Pending at time of dictation. ASSESSMENT AND PLAN: 1. Abdominal distention due to severe ascites. We have removed 2 liters of ascitic fluid yesterday. The patient has a catheter in place but unfortunately we need to have special bottles for this type of catheter that are very expensive. We are going to talk with the social organization professor to find a way to help patient to 2 get them. Otherwise, patient will need to be coming to the hospital pretty much frequently and that is basically one of the reasons why this patient is still staying here. 2. Metastatic pancreatobiliary carcinoma being seen by Dr. Turcios here in the hospital but they are not going to provide any treatment until this patient is clinically more stable. 3. Constipation. Patient reports feeling fine, having had bowel movement the day before yesterday night. 4. Generalized weakness and physical deconditioning. Physical Therapy has been consulted. 5. Ascites. We have drained 2 L of ascitic fluid yesterday. 6. Streptococcus mitis infection. We will continue with Levaquin, day #2 of the treatment. 7. Disposition. At this point, patient is feeling better. We are going to talk with the social organization professor to see if there is any way to help this patient to get those bottles and then this patient can be discharged. cc: Baudilio Larios MD
[2019-12-22] MEDS: MYCELEX TROCHE PO SCH ×5 (08:59→22:57)
[2019-12-22] MEDS: MIRALAX PO SCH (09:01)
[2019-12-22] MEDS: LACTULOSE PO SCH ×2 (09:01→22:57)
[2019-12-22] MEDS: NORCO-5 PO PRN (17:56)
--- NOTE | 2019-12-22 20:15 | HEMO/ONC PROGRESS NOTE ---
DATE: 12/22/2019 SUBJECTIVE: Ms. Moreno is lying in her hospital bed. There is a friend/family member at bedside. She is feeling okay today. OBJECTIVE: Vital Signs: Temperature 97.5 degrees, heart rate 102, respirations 17, blood pressure 102/56, O2 saturation 99% on room air. Labs and Studies: White blood cells are 7.40, hemoglobin 10.0, platelet count 384,000. Sodium 130, potassium 4.2, chloride 95, CO2 23, BUN 15, creatinine 0.8, glucose 115. CV: Tachycardia. Respiratory: Normal respiratory effort. Gastrointestinal: Abdomen is distended with ascites. Extremities: Some trace edema noted. ASSESSMENT AND PLAN: 1. Intrahepatic cholangiocarcinoma. Treatment is on hold. We will plan to reinitiate treatment once she is out. 2. Ascites. This improves with drainage. She does have a peritoneal catheter in place. They are still working on getting her drainage bottles at home. I did discuss with a couple of the nurses today, and they do not feel like doing some sort of syringe would be an option. May consider discussing with the patient's surgeon to see if they have any recommendations. For reading the notes, it seems like they are waiting on her getting a supply of the bottles so that way she may go home. 3. Constipation. This seems to be improved. She will need to do a daily bowel regimen. 4. Generalized weakness. Continue physical therapy. 5. Positive blood cultures. Continue current antibiotic therapy per the primary team. Dictated by CHARLETTE Guy for Genia Turcios MD cc: Genia Turcios MD I have seen and examined the patient and the above note reflects my history, physical exam, assessment and plan. Genia ROMERO
[2019-12-22] MEDS: LEVAQUIN 750 MG/D5W 750 MG/150 ML IVPB IV SCH ×2 (22:57→23:03)
[2019-12-22] MEDS: AMBIEN PO SCH (22:57)
[2019-12-23 08:02] LABS: BASO# 0.05 X1000 (0.0-0.2); BASO% 0.6 % (0.0-0.8); EOS# 0.02 X1000 (0.0-0.7); EOS% 0.2 % (0.0-10.0); HEMATOCRIT 32.2 % (37.0-47.0); HEMOGLOBIN 10.2 g/dL (12.0-16.0); IMM GRAN# 0.09 X1000 (0.0-0.04); IMM GRAN% 1.1 % (0.0-0.5); LYMPH# 2.15 X1000 (1.2-3.4); LYMPH% 25.2 % (20.5-51.1); MCH 26.6 PG (27-31); MCHC 31.7 g/dL (33-37); MCV 84.1 FL (81-99); MONO# 1.21 X1000 (0.11-0.59); MONO% 14.2 % (1.7-9.3); MPV 8.4 FL (7.4-10.4); NEUT% 58.7 % (42.2-75.2); PLT 339 X1000 (130-400); RBC 3.83 XMIL (4.2-5.4); WBC 8.52 X1000 (4.8-10.8)
--- NOTE | 2019-12-23 08:19 | PROGRESS NOTE ---
DATE: 12/23/2019 SUBJECTIVE: Patient reports feeling fine. No abdominal distention. She felt a little bit short of breath today. No fever or chills. OBJECTIVE: Vital Signs: Temperature 97.8 degrees, heart rate 97, respiratory rate 18, blood pressure 108/70, and O2 saturation 100% on room air. General: This is a chronically ill appearing 58-year-old female lying in bed in no acute distress. Cardiovascular: S1, S2 heard. No murmurs, gallops or rubs. Regular rate and rhythm. Respiratory: Clear bilaterally to auscultation. No work of breathing or using accessory muscles. Abdomen: Soft. Distended. Very mild ascites noted. Extremities: Mild pitting edema. No clubbing or cyanosis noted. Neurological: Patient alert and oriented x3. Moves all 4 extremities. LABORATORY DATA: Pending at time of my dictation. ASSESSMENT AND PLAN: 1. Abdominal distention due to severe ascites. We have removed 2 L of ascitic fluid the day before yesterday. The problem that is not letting us discharge this patient is that she has malignant ascites that she needs to 2 to 3 bottles to use with this peritoneal catheter that she has that are very expensive. We were trying to work with adoption social worker to get those, and discharge this patient from the hospital. 2. Metastatic pancreatobiliary carcinoma being seen by Dr. Turcios in the hospital. They are not going to provide any treatment at this point. 3. Constipation improved. 4. General weakness and physical deconditioning. Physical Therapy and Occupational Therapy has been consulted. 5. Ascites. Stable. 6. Streptococcus mitis infection. We will continue Levaquin day #3 of treatment. 7. Disposition. At this point, we will see what we can do to help this patient to get those bottles to drain her malignant ascites at home. cc: Baudilio Larios MD
[2019-12-23 08:44] LABS: AGAP 12; ALBUMIN 2.5 g/dL (3.5-5.0); ALKALINE PHOSPHATASE 255 U/L (32-104); BUN 16 mg/dL (8-22); CALCIUM 8.6 mg/dL (8.8-10.2); CHLORIDE 94 mmol/L (98-107); COSMO 260; CREATININE 0.8 mg/dL (0.5-0.9); ESTIMATED GFR > 60; GLUCOSE 105 mg/dL (70-104); GOT 24 U/L (10-30); GPT 17 U/L (10-36); POTASSIUM 3.9 mmol/L (3.5-5.1); SODIUM 129 mmol/L (136-145); TCO2 23 mmol/L (25-35); TOTAL BILIRUBIN 0.48 mg/dL (0.20-1.00); TOTAL PROTEIN 5.1 g/dL (6.3-8.3)
--- NOTE | 2019-12-23 09:06 | Diag Imaging Result Doc PS360 ---
EXAM: CHEST-2 VIEWS 12/23/2019 HISTORY: sob TECHNIQUE: PA and lateral chest COMMENT: There are atelectatic changes present in both lung bases. This is worse particularly on the right side than on 12/19/2019. The lungs are actually better expanded than they were. There is some free air under the right hemidiaphragm, however this is presumably related to the peritoneal catheter which was recently placed. This was discussed with Dr. Ramirez at 0904. IMPRESSION: Bibasilar atelectasis. Electronically signed by Jemal Christensen 12/23/2019 9:04 AM
[2019-12-23] MEDS: MIRALAX PO SCH (10:27)
[2019-12-23] MEDS: LACTULOSE PO SCH ×2 (10:27→21:08)
[2019-12-23] MEDS: MYCELEX TROCHE PO SCH ×5 (10:28→21:06)
[2019-12-23] MEDS: NORCO-5 PO PRN (14:45)
[2019-12-23] MEDS: LEVAQUIN 750 MG/D5W 750 MG/150 ML IVPB IV SCH (19:13)
[2019-12-23] MEDS: AMBIEN PO SCH (21:06)
[2019-12-24] MEDS: NORCO-5 PO PRN (04:02)
[2019-12-24 08:00] LABS: BASO# 0.04 X1000 (0.0-0.2); BASO% 0.5 % (0.0-0.8); EOS# 0.03 X1000 (0.0-0.7); EOS% 0.3 % (0.0-10.0); HEMATOCRIT 31.2 % (37.0-47.0); HEMOGLOBIN 10.2 g/dL (12.0-16.0); IMM GRAN# 0.11 X1000 (0.0-0.04); IMM GRAN% 1.3 % (0.0-0.5); LYMPH# 1.78 X1000 (1.2-3.4); LYMPH% 20.5 % (20.5-51.1); MCH 27.4 PG (27-31); MCHC 32.7 g/dL (33-37); MCV 83.9 FL (81-99); MONO# 1.28 X1000 (0.11-0.59); MONO% 14.7 % (1.7-9.3); NEUT# 5.46 X1000 (1.4-6.5); NEUT% 62.7 % (42.2-75.2); PLT 311 X1000 (130-400); RBC 3.72 XMIL (4.2-5.4); RDW 18.3 % (11.5-14.5)
[2019-12-24 08:37] LABS: AGAP 12; ALBUMIN 2.5 g/dL (3.5-5.0); ALKALINE PHOSPHATASE 265 U/L (32-104); BUN 16 mg/dL (8-22); CALCIUM 8.6 mg/dL (8.8-10.2); CHLORIDE 96 mmol/L (98-107); COSMO 263; CREATININE 0.9 mg/dL (0.5-0.9); ESTIMATED GFR > 60; GLUCOSE 115 mg/dL (70-104); GOT 28 U/L (10-30); GPT 18 U/L (10-36); POTASSIUM 4.2 mmol/L (3.5-5.1); SODIUM 130 mmol/L (136-145); TCO2 22 mmol/L (25-35); TOTAL BILIRUBIN 0.41 mg/dL (0.20-1.00); TOTAL PROTEIN 5.1 g/dL (6.3-8.3)
[2019-12-24] MEDS: MIRALAX PO SCH (10:23)
[2019-12-24] MEDS: LACTULOSE PO SCH (10:24)
[2019-12-24] MEDS: MYCELEX TROCHE PO SCH ×2 (10:24→13:13)
[2019-12-24 12:52] VITALS: BP 130/77
--- NOTE | 2019-12-24 15:14 | DISCHARGE SUMMARY ---
ADMISSION DATE: 12/19/2019 DISCHARGE DATE: 12/24/2019 DISCHARGE DIAGNOSES: 1. Malignant ascites. 2. Metastatic right colon cancer with metastasis to liver. 3. Generalized weakness. 4. Constipation. CONSULTATIONS: None. PROCEDURES: 1. Chest x-ray done on admission showed critically low lung volumes with bibasilar crowding. 2. Abdomen and pelvis CT showed worsening ascites despite peritoneal drain. Numerous other findings are grossly stable from prior. CONSULTATIONS: Dr. Turcios from Oncology. HOSPITAL COURSE: This is a 58-year-old female with past medical history of metastatic colon cancer to the liver who is receiving chemotherapy. He reported feeling weak, constipated, and also worsening ascites. Patient has a peritoneal catheter. He was running at 2 L of ascitic fluid, but apparently she needs special bottles for drain herself at home. She came to the hospital today, and we were able to provide some to her, and she is going to see her primary oncologist in a week to see if she requires further chemotherapy or not. At this point, patient is medically stable so we will continue with the same management. DISCHARGE PHYSICAL EXAMINATION: Vital Signs: Temperature 97.4 degrees, heart rate 98, respiratory rate 18, blood pressure 130/77, and O2 saturation 98% on room air. General: She is a chronically ill-looking 58-year-old, female lying in bed in no acute distress. Cardiovascular: S1 and S2. No murmurs, gallops, or rubs. Regular rate and rhythm. Respiratory: Clear bilaterally to auscultation. No work of breathing or using accessory muscles. Abdomen: Distended with some ascites noted. No signs of peritoneal irritation. Extremities: No clubbing, cyanosis, or edema. Peripheral pulses present in both legs. Neurological: The patient alert and oriented x3. Moves all 4 extremities. DISCHARGE DISPOSITION: Home to self-care. FOLLOW UP: Dr. Genia Turcios in a week. MEDICATIONS: We are not providing any new medications for her. cc: MD NICK Reynolds
== END 2019-12-24 15:36 | disposition home health service (06) | DRG 375 ==
LOC: ED 09:37 → SUATTDRO 17:48 → 3N 17:48
PROVIDERS: ATTEND Internal Medicine

== ENCOUNTER 2020-02-19 16:36 | Inpatient (IN) ==
--- NOTE | 2020-02-19 18:41 | Diag Imaging Result Doc PS360 ---
EXAM: CT HEAD W/O CONTRAST INDICATION: altered mental status TECHNIQUE: This exam was performed using automated exposure control, adjustment of mA or kV according to patient size, and/or use of iterative reconstruction technique. COMPARISON: None. FINDINGS: There is no definite acute infarct given the limited sensitivity of CT versus MRI. There is no discrete intracranial mass, mass effect, or intracranial hemorrhage. The surrounding soft tissues and bony structures are essentially unremarkable. IMPRESSION: No evidence of acute intracranial pathology. Electronically signed by Jarocho Menchaca 02/19/2020 6:38 PM
[2020-02-19] MEDS ORDERED: NS 1,000 ML IV ONE ×2 (18:48→19:59)
--- NOTE | 2020-02-19 18:53 | PROVIDER DOCUMENTATION ---
This chart was entered by Rohini Putnam Scribe, acting as scribe for Anil Kraus DO. HPI-General Adult - General Source: patient, other (life partner is outside of er (due to no vistors) and dr kraus spoke with him personally) - History of Present Illness -Gen Adult Nature of Presenting Problems: 59 yof presents to the ed with life partner for c/o generalized weakness that has worsened in the last 4 days. pt is a current cancer pt and saw oncology yes terday for liver cancer with mets. life partner drains abdomen at home daily and reports today he got 2 liters from drainage port lpta. pt on exam is confused and with conversation drifting off while speaking. Location of Pain/Injury: reports: generalized (weakness) Quality of Pain: reports: fullness Severity: reports: moderate Onset/Duration: reports: 4 days ago Timing: reports: still present Context/Activities at Onset: reports: light activity Modifying Factors: improves with: nothing Associated Symptoms: reports: weakness (generalized). denies: back/neck pain, chest pain, cough, shortness of breath Similar Symptoms Previously?: Yes Recently seen or treated by another doctor?: No <Anil Kraus - Last Filed: 02/19/20 18:53> <Nick Esparza - Last Filed: 02/19/20 21:56> - General Stated Complaint: ABD.PAIN/WEAKNESS Time Seen by Provider: 02/19/20 16:52 Allergies/Adverse Reactions: Patient Allergies Allergy/AdvReac Type Severity Reaction Status Date / Time No Known Allergies Allergy Verified 02/19/20 17:28 Home Medications: Home Medication List Medication Instructions Recorded Confirmed Last Taken Type Zolpidem [Ambien] 5 mg PO QHS 09/30/19 12/20/19 12/06/19 History Amlodipine [Norvasc] 2.5 mg PO DAILY 12/03/19 12/20/19 12/07/19 06:30 History Ondansetron Odt [Zofran Odt] 8 mg PO Q8H PRN PRN 12/20/19 02/19/20 Unknown History Alprazolam [Xanax] 0.5 mg PO Q6H PRN PRN #45 tab 12/24/19 Unknown Rx Lactulose 30 ml PO BID PRN PRN #60 udc 12/24/19 Unknown Rx Zolpidem [Ambien] 10 mg PO HS #30 tab 12/24/19 02/19/20 Unknown Rx Hydrocodone/Acetaminophen 1 ea PO DIRECTED 02/19/20 02/19/20 Unknown History [Hydrocodone-Acetamin 7.5-325] Sodium Chloride 1 gm PO BID 02/19/20 02/19/20 Unknown History Review of Systems - Adult - REVIEW OF SYSTEMS - ADULT ROS:: limited per condition (pt is confused) Constitutional: denies: chills, fever Eyes: reports: no symptoms reported Ears, Nose, Mouth & Throat: reports: no symptoms reported Cardiovascular: denies: chest pain, syncope Respiratory: denies: cough, shortness of breath, wheezing Gastrointestinal: denies: abdominal pain, diarrhea, nausea, vomiting Genitourinary: reports: no symptoms reported Musculoskeletal: reports: see HPI, other (generalized weakness). denies: back pain, neck pain Integumentary: reports: no symptoms reported Neurological: denies: dizziness/vertigo, headache/migraines Psychiatric: reports: no symptoms reported Endocrine: reports: no symptoms reported Hematologic/Lymphatic: reports: no symptoms reported Allergic/Immunologic: reports: no symptoms reported All Other Systems: Reviewed and Negative <Anil Kraus - Last Filed: 02/19/20 18:53> Past History - Adult - PAST MEDICAL HISTORY-ADULT Review of Records: reports: Old Records Reviewed, Nursing Assessment Review, Medications Reviewed, Social history reviewed & non-contributory. Major Childhood Illnesses: reports: denies history Cardiovascular: reports: HTN Respiratory: reports: denies history Gastrointestinal: reports: cancer (liver with mets) Obstetrical/Gynecological: reports: denies history Genitourinary: reports: denies history Musculoskeletal: reports: chronic pain, fibromyalgia Hand Dominance: Right Handed Neurological: reports: denies history Psychiatric: reports: denies history Endocrine/Immune: reports: immunosuppression Other Conditions: reports: denies history - PRIOR SURGERIES/PROCEDURES Surgical/Procedure History: reports: other (drainage port placed in LLQ) - IMMUNIZATION STATUS Childhood Immunizations: See Nurse Assessment Flu Vaccine: See Nurse Assessment - FAMILY HISTORY Family History: reviewed, not pertinent - SOCIAL HISTORY Smoking: denies Alcohol Use Frequency: never Living Situation: friend (life partner) <Anil Kraus - Last Filed: 02/19/20 18:53> Physical Exam-General - PHYSICAL EXAM-ADULT Exam Limited by: pt is confused Initial Vital Signs Reviewed: Yes - CONSTITUTIONAL General Appearance: alert, mild distress - EYES Eyes: PERRL/EOMI, pink conjunctivae - HEAD, EARS, NOSE, MOUTH & THROAT HENMT: moist mucous membranes - NECK Neck: non-tender, full range of motion, supple, normal inspection - RESPIRATORY Respiratory: chest non-tender, lungs clear, normal breath sounds - CARDIOVASCULAR Cardiovascular: systolic murmur - GASTROINTESTINAL (ABDOMEN) Abdominal Exam: normal bowel sounds, soft, distended (ascities noted mild and drainage port is noted in LLQ with 4x4 covering port). negative: rigid, rebound - LYMPHATIC Lymphatic: no adenopathy - MUSCULOSKELETAL Back Exam: no CVA tenderness, no vertebral tenderness Extremity: normal range of motion, non-tender, normal inspection - SKIN Integumentary: normal color, normal turgor, warm/dry - NEUROLOGIC Neurologic: grossly normal - PSYCHIATRIC Psych/Mental Status: disoriented x 3 <Anil Kraus - Last Filed: 02/19/20 18:53> Progress - PLAN OF CARE/RESULTS Progress/Plan/Lab Results: Orders Category Date Time Status CHEST-PORTABLE [RAD] Stat Exams 02/19/20 17:10 Ordered CBC WITH ELECTRONIC DIFF [HEME] Stat Lab 02/19/20 17:10 Uncollected CK PROFILE [SP CHEM] Stat Lab 02/19/20 17:15 Ordered COMPREHENSIVE METABOLIC PANEL [CHEM] Stat Lab 02/19/20 17:10 Ordered INFLUENZA SCREEN A/B Stat Lab 02/19/20 17:10 Uncollected PRO B-NATRIURETIC PEPTIDE Stat Lab 02/19/20 17:10 Ordered PRO B-NATRIURETIC PEPTIDE Stat Lab 02/19/20 17:15 Ordered TROPONIN T HIGH SENSITIVITY Stat Lab 02/19/20 17:15 Uncollected UA NIMS W/REFLEX CULT [URINALYSIS] Stat Lab 02/19/20 17:10 Uncollected - CHANGE OF SHIFT REPORT (ED Provider) 1 Report Given and Care Transferred to:: Dr Esparza Time of Transfer: 19:00 Items Pending: Labs <Anil Kraus - Last Filed: 02/19/20 18:53> - PLAN OF CARE/RESULTS Progress/Plan/Lab Results: Vital Signs - 8 hr 02/19/20 17:24 Temperature 97.7 F Pulse Rate 108 H Respiratory Rate 16 Blood Pressure 83/61 O2 Sat by Pulse Oximetry 100 02/19/20 17:17 Influenza Screen - Final Nasopharyngeal Orders Category Date Time Status May use PICC Line/Port a Cath ORDERED Care 02/19/20 20:12 Ordered CHEST-PORTABLE [RAD] Stat Exams 02/19/20 17:[address] HEAD W/O CONTRAST [CT] Stat Exams 02/19/20 18:15 Completed AMMONIA [CHEM] Stat Lab 02/19/20 19:58 Uncollected BLOOD CULTURE [BLDCUL] Stat Lab 02/19/20 19:56 Ordered BODY FLUID ANALYSIS [CELL CNT] Stat Lab 02/19/20 20:09 Uncollected CBC WITH ELECTRONIC DIFF [HEME] Stat Lab 02/19/20 17:10 Uncollected CK PROFILE [SP CHEM] Stat Lab 02/19/20 17:15 Ordered COMPREHENSIVE METABOLIC PANEL [CHEM] Stat Lab 02/19/20 17:10 Ordered DIRECT STREP Stat Lab 02/19/20 20:00 Uncollected GLUCOSE BODY FLUID [BF CHEM] Stat Lab 02/19/20 20:10 Uncollected INFLUENZA SCREEN A/B Stat Lab 02/19/20 17:17 Completed LACTATE, PLASMA [CHEM] Stat Lab 02/19/20 19:56 Ordered LIPASE [CHEM] Stat Lab 02/19/20 19:56 Ordered PRO B-NATRIURETIC PEPTIDE Stat Lab 02/19/20 17:10 Ordered PROTIME WITH INR [COAG] Stat Lab 02/19/20 19:56 Ordered ROUTINE CULTURE [RM] Stat Lab 02/19/20 20:09 Uncollected TOTAL PROT BODY FLUID [BF CHEM] Stat Lab 02/19/20 20:10 Uncollected TROPONIN T HIGH SENSITIVITY Stat Lab 02/19/20 17:15 Uncollected UA NIMS W/REFLEX CULT [URINALYSIS] Stat Lab 02/19/20 17:10 Uncollected URINALYSIS W/POSS RFLX CULT [URINALYSIS] Stat Lab 02/19/20 19:57 Uncollected 0.9% Sodium Chloride Inj [Ns] 1,000 ml Med 02/19/20 18:48 Active IV 500 mls/hr 0.9% Sodium Chloride Inj [Ns] 1,000 ml Med 02/19/20 19:59 Active IV 999 mls/hr 0.9% Sodium Chloride Inj [Ns] 500 ml Med 02/19/20 19:59 Active IV 999 mls/hr Fentanyl Med 02/19/20 20:12 Once 25 microgm IV NOW ONE Ondansetron [Zofran] Med 02/19/20 20:12 Once 4 mg IV NOW ONE Piperacillin/Tazobactam [Zosyn] 4.5 gm Med 02/19/20 19:59 Active 0.9% Sodium Chloride Inj [Ns] 100 ml IV NOW Vancomycin 1 gm/Ns Med 02/19/20 19:59 Active 1 gm in 250 ml IV NOW Result Diagrams: 02/19/20 20:05 02/19/20 20:05 - REASSESSMENT Reassessment #1 Time Reassessed: 20:12 Status: improving (Seen and examined by me. Case discussed with Dr. Kraus at shift change. Patient is a chemotherapy patient with CBD CA, on chemo, last c hemo last week. Has port and indwelling abdominal ascites drain. C/O generalized weakness and abdominal pain. Patient likely has septic shock. Will give 30ml/kg fluid bolus, and cover with Vanc/Zosyn.) Reassessment #2 Time Reassessed: 21:51 Status: improving (Patient has 3 SIRS criteria (tacycardic, tachypenic, leukopenia) and hypotension. SHe has septic shock. Given IV vanc/zosyn. Have sent of ascitic fluid for culture/stain/cell count. She may well have SBP. Will start leva phed if pressure doesn't increase with IVF bolus of 30ml/kg) - CONSULTS/PCP/HOSPITALIST Notification #1 *Consult/PCP/Hospitalist*: Gregory Time Discussed: 21:52 Consult Disposition: Will see in ED, Admit <Nick Esparza - Last Filed: 02/19/20 21:56> Departure - Critical Care Note This patient required my direct & personal management of CC.: No <Anil Kraus - Last Filed: 02/19/20 18:53> - Departure Date of Disposition Decision: 02/19/20 Time of Disposition Decision: 21:55 Certified Medical Emergency: Emergent - Critical Care Note This patient required my direct & personal management of CC.: Yes <Nick Esparza - Last Filed: 02/19/20 21:56> - Departure DIAGNOSIS: Septic shock, Chemotherapy-induced neutropenia Abdominal pain Qualifiers: Abdominal location: generalized Qualified Code(s): R10.84 - Generalized abdominal pain Disposition: ADMITTED INPATIENT 09 Condition: Fair Referrals and Follow-Ups: None,PCP [Primary Care Provider] - Attestation - Physician/ GIULIANO Attestation Patient care was provided by Advanced Practice Provider:: No The physician spent face to face time with patient:: Yes Advanced Practice Provider documentation review:: Supervising physician onsite and consulted in the evaluation and care of this patient. The physician did have a face to face encounter with the patient. <Anil Kraus - Last Filed: 02/19/20 18:53> - Physician/ GIULIANO Attestation Patient care was provided by Advanced Practice Provider:: No The physician spent face to face time with patient:: Yes Advanced Practice Provider documentation review:: Supervising physician onsite and consulted in the evaluation and care of this patient. The physician did have a face to face encounter with the patient. <Nick Esparza - Last Filed: 02/19/20 21:56> This chart was documented by the indicated scribe, (Rohini Putnam Scribe) and accurately reflects the services I performed and decisions made by , Anil Kraus DO, as attested by the provider's signature.
--- NOTE | 2020-02-19 19:08 | Diag Imaging Result Doc PS360 ---
EXAM: CHEST-PORTABLE INDICATION: weakness TECHNIQUE: One view COMPARISON: 12/23/2019 FINDINGS: There is a stable right chest port. There is mild linear scarring versus chronic subsegmental atelectasis at the right lung base, stable. There is evidence of prior granulomatous disease, stable. There is no discrete pleural fluid collection or pneumothorax. The cardiomediastinal silhouette and central vasculature are grossly unremarkable. IMPRESSION: Mild bibasilar scarring versus subsegmental atelectasis. No definite acute chest pathology by plain radiograph, otherwise. Electronically signed by Jarocho Menchaca 02/19/2020 7:06 PM
[2020-02-19] MEDS ORDERED: NS 500 ML IV ONE (19:59)
[2020-02-19] MEDS ORDERED: VANCOMYCIN 1 GM/NS 1 GM/250 ML IVPB IV ONE (19:59)
[2020-02-19] MEDS ORDERED: ZOSYN 4.5 GM in NS 100 ML IV ONE (19:59)
[2020-02-19] MEDS ORDERED: FENTANYL IV ONE (20:12)
[2020-02-19] MEDS ORDERED: ZOFRAN IV ONE (20:12)
[2020-02-19 20:38] LABS: BASO# 0.04 X1000 (0.0-0.2); EOS# 0.02 X1000 (0.0-0.7); EOS% 0.5 % (0.0-10.0); HEMATOCRIT 33.8 % (37.0-47.0); HEMOGLOBIN 11.4 g/dL (12.0-16.0); IMM GRAN# 0.04 X1000 (0.0-0.04); LYMPH# 2.33 X1000 (1.2-3.4); LYMPH% 60.8 % (20.5-51.1); MCH 28.8 PG (27-31); MCHC 33.7 g/dL (33-37); MCV 85.4 FL (81-99); MONO# 1.14 X1000 (0.11-0.59); MONO% 29.8 % (1.7-9.3); MPV 10.6 FL (7.4-10.4); NEUT# 0.26 X1000 (1.4-6.5); NEUT% 6.9 % (42.2-75.2); PLT 109 X1000 (130-400); RBC 3.96 XMIL (4.2-5.4); RDW 16.7 % (11.5-14.5); WBC 3.83 X1000 (4.8-10.8)
[2020-02-19 20:41] LABS: INR 2.22; PROTIME 25.2 Seconds (11.0-16.0)
[2020-02-19 21:04] LABS: ALB/GLOB RATIO 0.7; ALBUMIN 1.9 g/dL (3.5-5.0); CALCIUM 8.2 mg/dL (8.8-10.2); CREATININE 1.3 mg/dL (0.5-0.9); POTASSIUM 5.9 mmol/L (3.5-5.1); TOTAL BILIRUBIN 0.59 mg/dL (0.20-1.00); TOTAL PROTEIN 4.8 g/dL (6.3-8.3)
[2020-02-19 22:12] LABS: URINE SOURCE CATH
[2020-02-19 22:14] LABS: BILIRUBIN URINE NEGATIVE (NEGATIVE); BLOOD URINE NEGATIVE (NEGATIVE); COLOR YELLOW; GLUCOSE URINE NEGATIVE (NEGATIVE); KETONE URINE NEGATIVE (NEGATIVE); LEUKOCYTES URINE NEGATIVE (NEGATIVE); NITRITE URINE NEGATIVE (NEGATIVE); PH URINE 5.5; PROTEIN URINE TRACE mg/dL (NEGATIVE); SP GRAVITY URINE 1.025; TURBIDITY URINE CLEAR (CLEAR); UR EPITHELIAL CELLS <10 /HPF (<10); URINE BACTERIA NEGATIVE /HPF; URINE RBC <10 /HPF (<10); URINE WBC <10 /HPF (<10); UROBILINOGEN URINE NORMAL (NORMAL)
[2020-02-19 22:48] LABS: BODY FLUID SOURCE ASCETIC FLUID; WBC BF 48 /cumm
[2020-02-19 22:49] LABS: MONOS 60 %; POLYS 40 %
[2020-02-19 23:03] LABS: GLUCOSE BODY FLUID 119 mg/dL; TOTAL PROT BODY FLUID 1.1 g/dL
--- NOTE | 2020-02-20 00:57 | HISTORY AND PHYSICAL ---
PRIMARY CARE PROVIDER: None. CHIEF COMPLAINT: Abdominal pain, low-grade temperature, not feeling well. HISTORY OF PRESENTING ILLNESS: A 59-year-old female with a history of intrahepatic cholangiocarcinoma, hypertension, fibromyalgia, who is apparently receiving chemotherapy and also had a peritoneal drain for malignant ascites, presented to emergency department with several days history of having worsening abdominal pain, and feeling weak and low-grade temperature. She was seen in the ED and she was somewhat hypotensive. She was given IV fluids and put on IV antibiotics for possible peritonitis. She will require admission for further management. The patient is a poor historian. She is somewhat confused at time of my examination, however, she denied any chest pain, shortness of breath, but states that she does not feel well. PAST MEDICAL HISTORY: Includes fibromyalgia, intrahepatic cholangiocarcinoma, hypertension. PAST SURGICAL HISTORY: Peritoneal drain, colon resection. ALLERGIES: No known drug allergies. CURRENT MEDICATIONS: Alprazolam 0.5 mg p.o. q.6 hours, amlodipine 2.5 mg p.o. daily, [place] 7.5 mg p.o. q.6 hours, lactulose 30 mL p.o. b.i.d., Ambien 10 mg p.o. at bedtime. SOCIAL HISTORY: No history of smoking, alcohol or illicit drug use. FAMILY HISTORY: No history of coronary artery disease. REVIEW OF SYSTEMS: Is limited as in HPI. PHYSICAL EXAMINATION: GENERAL: The patient is resting comfortably. However, she is somewhat confused. VITAL SIGNS: Temperature 97.7 degrees, pulse 108, respirations 16, blood pressure 83/61. HEENT: Atraumatic, normocephalic. PERRLA. NECK: No masses. CHEST: Clear to auscultation. CARDIOVASCULAR: Regular rate and rhythm. ABDOMEN: Soft. Diffuse tenderness. EXTREMITIES: +1 edema. NEUROLOGIC: She is awake, alert, oriented x1. GENITOURINARY: No bladder distention. SKIN: Warm. LABORATORIES AND STUDIES: Sodium 124, potassium 5.9, chloride 92, CO2 is 19, BUN is 51, creatinine is 1.3, glucose is 120. Plasma lactate is 2.3. WBCs is 3.83, hemoglobin 11.4, hematocrit 33.8, platelets 109,000. ASSESSMENT: This is a 59-year-old female with a history of intrahepatic cholangiocarcinoma, hypertension, fibromyalgia, who had presented to emergency department with complaint of worsening abdominal pain. She was somewhat confused during her initial examination. It was suspected possibly she had malignant ascites and possible peritonitis. Subsequently, she will require admission for further management. 1. Abdominal pain. 2. Suspected malignant ascites with peritonitis. 3. Intrahepatic cholangiocarcinoma. 4. Hypotension. 5. Mild hyperkalemia. 6. Hyponatremia. PLAN: 1. We will admit patient to [facility]. 2. We will keep patient NPO. 3. We will check blood cultures and peritoneal fluid cultures and start patient on IV antibiotics. 4. Consult her oncologist. 5. Continue with IV fluids and add pressors if her blood pressure does not improved. 6. We will monitor her potassium level and treat it accordingly. 7. We will monitor her sodium. 8. We will put patient on DVT prophylaxis with SCD. 9. We will continue to follow, and reassess and make further recommendation based on patient's clinical course. cc: Luis Enrique Jenkins MD
[2020-02-20] MEDS: NS 1,000 ML IV SCH ×2 (03:05→14:26)
[2020-02-20] MEDS: ZOSYN 3.375 GM in NS 50 ML IV SCH ×4 (03:05→20:33)
[2020-02-20 07:00] LABS: BASO# 0.09 X1000 (0.0-0.2); BASO% 1.7 % (0.0-0.8); EOS# 0.02 X1000 (0.0-0.7); EOS% 0.4 % (0.0-10.0); HEMATOCRIT 33.2 % (37.0-47.0); HEMOGLOBIN 11.1 g/dL (12.0-16.0); IMM GRAN# 0.27 X1000 (0.0-0.04); LYMPH# 2.25 X1000 (1.2-3.4); LYMPH% 41.7 % (20.5-51.1); MCH 28.8 PG (27-31); MCHC 33.4 g/dL (33-37); MCV 86.2 FL (81-99); MONO# 1.44 X1000 (0.11-0.59); MONO% 26.7 % (1.7-9.3); MPV 10.6 FL (7.4-10.4); NEUT# 1.32 X1000 (1.4-6.5); NEUT% 24.5 % (42.2-75.2); PLT 124 X1000 (130-400); RBC 3.85 XMIL (4.2-5.4); RDW 16.8 % (11.5-14.5); WBC 5.39 X1000 (4.8-10.8)
[2020-02-20 07:14] LABS: CREATININE 1.3 mg/dL (0.5-0.9); POTASSIUM 5.7 mmol/L (3.5-5.1)
[2020-02-20 07:26] LABS: BANDS 14 % (0-1); LYMPHS 50 % (21-51); MONO 16 % (1-9); SEGS 16 % (42-75)
[2020-02-20] MEDS: SODIUM CHLORIDE PO SCH ×2 (09:10→20:26)
--- NOTE | 2020-02-20 10:05 | Diag Imaging Result Doc PS360 ---
EXAM: US ABDOMEN-COMPLETE INDICATION: abdominal pain COMPARISON: None. FINDINGS: Note that the study was poorly tolerated by the patient. This as well as body habitus somewhat limits the study. There is significant ascites. The gallbladder is partially contracted. There is gallbladder wall thickening. However, this is probably due to the contraction as well as the surrounding ascites. No gallbladder stones are appreciated. The common bile duct is normal in diameter. Sonographic Lane's sign was reported to be negative. The liver echotexture is very heterogeneous and there are scattered hepatic masses consistent with known hepatic metastatic disease. The pancreas is partially obscured. The visualized portion is unremarkable. The aorta and IVC are poorly visualized. There is mild splenomegaly. The spleen measures up to 15 cm in the greatest dimension. The kidneys are grossly unremarkable. IMPRESSION: 1.Ascites. 2.Thickened gallbladder wall. However, this is probably due to partial contraction of the gallbladder and the surrounding ascites. 3.Heterogeneous liver with multiple ill-defined hepatic masses consistent with known hepatic metastatic disease. 4.Splenomegaly. Electronically signed by Jarocho Menchaca 02/20/2020 10:02 AM
[2020-02-20] MEDS: MORPHINE IV PRN (21:11)
[2020-02-21] MEDS: MORPHINE IV PRN ×4 (00:19→14:46)
[2020-02-21] MEDS: NS 1,000 ML IV SCH (00:20)
[2020-02-21 00:38] LABS: INR 1.8; PROTIME 21.3 Seconds (11.0-16.0)
[2020-02-21 00:39] LABS: PTT 36.3 Seconds (22.3-41.8)
[2020-02-21 00:56] LABS: HEMATOCRIT 29.5 % (37.0-47.0); MCH 29.3 PG (27-31); MCHC 33.9 g/dL (33-37); MCV 86.5 FL (81-99); MPV 10.1 FL (7.4-10.4); PLT 137 X1000 (130-400); RBC 3.41 XMIL (4.2-5.4); RDW 17.2 % (11.5-14.5); WBC 20.91 X1000 (4.8-10.8)
[2020-02-21 01:11] LABS: ALB/GLOB RATIO 0.8; ALBUMIN 1.7 g/dL (3.5-5.0); CALCIUM 7.4 mg/dL (8.8-10.2); CREATININE 1.3 mg/dL (0.5-0.9); POTASSIUM 4.8 mmol/L (3.5-5.1); TOTAL BILIRUBIN 0.43 mg/dL (0.20-1.00); TOTAL PROTEIN 3.9 g/dL (6.3-8.3)
[2020-02-21 01:31] LABS: BANDS 1 % (0-1); EOS 1 % (1-10); LYMPHS 43 % (21-51); MONO 29 % (1-9); SEGS 26 % (42-75)
[2020-02-21 01:32] LABS: ANISOCYTOSIS 1+
[2020-02-21] MEDS: ZOSYN 3.375 GM in NS 50 ML IV SCH ×4 (03:44→21:03)
[2020-02-21] MEDS: SODIUM CHLORIDE PO SCH ×2 (08:40→20:20)
--- NOTE | 2020-02-21 15:40 | PROGRESS NOTE ---
DATE: 02/21/2020 PRIMARY CARE PHYSICIAN: She has no primary care physician, but followed by Oncology. SUBJECTIVE: Abdominal pain, low-grade temperature, not feeling well. This a 59-year-old with a history of intrahepatic cholangiocarcinoma, hypertension, fibromyalgia, apparently receiving chemotherapy and also had a peritoneal drain for malignant ascites, who presented to the emergency department with several days of having worsening abdominal pain, feeling weak, low-grade temperature. She was seen in the emergency room and was hypotensive. Given IV fluids and put on IV antibiotics for suspected peritonitis. She had a little bit of confusion and quite a bit of discomfort. PAST MEDICAL HISTORY: Includes fibromyalgia, intrahepatic cholangiocarcinoma apparently stage IV, hypertension, peritoneal drain in place, history of colon resection. PHYSICAL EXAMINATION: General: She is uncomfortable. She is awake. She is moaning, quite a bit of discomfort. Vital Signs: Temperature 98 degrees, pulse 105, respirations 19, blood pressure 97/48. Eyes: Pupils are equal. Neck: No distended neck veins. Lungs: Clear in all lung velasquez. Cardiovascular: Regular rhythm and rate without murmur or S3. Abdomen: Nondistended but uncomfortable. Generally uncomfortable. Extremities: No pedal edema. IMAGING: Abdominal ultrasound done yesterday showed ascites, thickened gallbladder wall, however is probably due to partial contraction of the gallbladder and surrounding ascites; heterogeneous liver, multiple ill-defined hepatic metastatic masses consistent with known hepatic metastasis and splenomegaly. She had a chest x-ray done, mild bibasilar scarring versus subsegmental atelectasis. No definite acute chest pathology. CT of the head without contrast with no evidence of acute intracranial pathology. REVIEW OF ORDERS: She is on morphine 2 mg IV every three hours p.r.n. pain. She is on Zosyn 3.375 grams IV every six hours. ASSESSMENT AND PLAN: 1. Suspect malignant ascites and peritonitis. Intrahepatic cholangiocarcinoma with peritoneal metastasis, poor prognosis and a lot of discomfort. Continue antibiotics. 2. She is borderline hypotensive, mild hyperkalemia and some hyponatremia. She was admitted to the [facility]. Will continue to watch her blood pressures and fluids. Oncology is following and will discuss what our plan of treatment is, but I suspect we will pursue hospice care. cc: Rachid Caballero MD
[2020-02-21] MEDS: D5 NS 1,000 ML IV SCH (16:15)
[2020-02-22] MEDS: ZOSYN 3.375 GM in NS 50 ML IV SCH ×3 (03:13→16:07)
[2020-02-22] MEDS ORDERED: BLISTEX MEDICATED BERRY LIP BALM TOP PRN (04:15)
[2020-02-22] MEDS ORDERED: FLAGYL PO SCH (08:00)
[2020-02-22] MEDS: D5 NS 1,000 ML IV SCH (09:20)
[2020-02-22] MEDS: SODIUM CHLORIDE PO SCH (09:21)
[2020-02-22] MEDS: VANCOCIN PO SCH ×2 (09:21→13:36)
[2020-02-22] MEDS: TUMS EXTRA STRENGTH PO PRN (12:48)
[2020-02-22] MEDS: IMODIUM PO PRN (12:48)
[2020-02-22] MEDS: ZOFRAN IV PRN (12:48)
--- NOTE | 2020-02-22 13:29 | PROGRESS NOTE ---
DATE: 02/22/2020 SUBJECTIVE: The patient is complaining of abdominal pain. She does have a Clostridium difficile toxin that is positive. We have started this patient on vancomycin p.o. I will give her some Imodium. I will continue with Flagyl but instead of p.o. treatment. I will switch it to IV treatment since she was not tolerating too much p.o. I had a really large conversation with this patient about her current status, she has a documented metastatic intrahepatic cholangiocarcinoma. As per the patient, she does not want get more treatment. No more chemotherapy or radiotherapy, I have requested a palliative care evaluation and we discussed her Advance Directive for at least 17 minutes but she does not know what to do at this moment, so I will just monitor and treat her. OBJECTIVE: Vital Signs: Temperature 97.8 degrees, pulse 113, respiratory rate 21, blood pressure 112/83, oxygen saturation 98 on room air. HEENT: Head normocephalic. No trauma. PERRLA. Neck: Supple. No JVD. No masses. Central trachea. Chest: Some crepitus at the bases. Abdomen: Soft. Positive bowel sounds. No signs of peritoneal irritation. At this moment, she has a catheter coming out from her abdomen which is likely to drain the ascitic fluid. Extremities: No edema. No clubbing. No cyanosis. Neurological: Patient is awake, alert, she is oriented. LABORATORY: No lab work done today. Blood sugar 118. ASSESSMENT AND PLAN: 1. Abdominal pain secondary to metastatic intrahepatic cholangiocarcinoma, malignant ascites, Clostridium difficile colitis. I have placed this patient on p.o. vancomycin and IV Flagyl. She has been placed on Zosyn due to her the possibility of peritonitis. I will continue with the same management for now. 2. Clostridium difficile colitis as above. Continue with vancomycin p.o. and Flagyl IV. 3. Suspected malignant ascites due to her history of intrahepatic cholangiocarcinoma. Aware. As per the patient, she does not want to get more treatment. She does not want chemotherapy or radiotherapy. We discussed about the possibility of hospice and/or comfort measures only, and she is thinking about it. I have requested an evaluation by the palliative care nurse. 4. Hyperkalemia resolved. 5. Hyponatremia likely chronic. We will continue with same management. 6. Acute kidney injury, she has been placed on IV fluids which I will continue. 7. Fibromyalgia. Aware. 8. Hypertension. Actually this patient's blood pressure is borderline low and even in the low range, there is a report of a blood pressure around 76/63 today that seems to be more stable. 9. Dehydration. Continue with IV fluids. cc: Nir Ponce MD
[2020-02-22] MEDS: MORPHINE IV PRN (13:36)
[2020-02-22] MEDS ORDERED: DURAGESIC 12 MICROGM/HR PATCH TD ONE (14:16)
--- NOTE | 2020-02-22 16:05 | HEMO/ONC CONSULTATION ---
DATE: 02/21/2020 REQUESTING PHYSICIAN: Consultation requested by hospitalist service. REASON FOR CONSULTATION: Consultation is for patient known. HISTORY OF PRESENT ILLNESS: Ms. 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 Her primary oncologist is Dr. Genia Turcios. The patient most recently has received 1 cycle of Abraxane and Gemzar on 02/11/2020. She had poor tolerance and we actually had to hold her last cycle of treatment. In general, she has had a borderline performance status. She has now presented with worsening abdominal pain and just generally feeling weak with a low-grade temperature. She has been admitted for further evaluation. They have started her on IV antibiotics for possible peritonitis and cultures are currently pending. PAST MEDICAL HISTORY: 1. Fibromyalgia. 2. Intrahepatic cholangiocarcinoma with her last chemotherapy treatment being on 02/11/2020, which was Abraxane and Gemzar. She has previously received cisplatin and Gemzar. 3. Hypertension. PAST SURGICAL HISTORY: 1. Peritoneal drain placement. 2. Colon resection. SOCIAL HISTORY: Patient lives with her , who is supportive. She denies any alcohol, illicit drugs, or tobacco use. FAMILY HISTORY: Positive for fibromyalgia as well as breast cancer. REVIEW OF SYSTEMS: Twelve point review of systems has been completed and is negative except for as expressed in the HPI. PHYSICAL EXAMINATION: Vital Signs: Temperature 98 degrees, heart rate 105, respirations 19, blood pressure 97/40, O2 saturation 97% on room air. General: This is a female lying in her hospital bed. She does seem altered but can also answer questions. She appears to be acutely ill. Head is normocephalic, atraumatic. Eyes: Pupils equal, round, reactive. Ears, Nose, Throat, Neck, and Mouth: Oral mucosa appears to be normal. Gross auditory acuity is intact. Cardiovascular: Tachycardia is noted. Respiratory: Her breathing is not labored. No audible wheezing. Gastrointestinal: Abdomen is slightly distended. She has some diffuse tenderness. Musculoskeletal: No obvious bony abnormalities. Extremities: She does have pedal edema, left is equal to right. Neurologic: The patient is arousable. She is able to answer questions. At times, she seems though to be very lethargic. LABS AND STUDIES: White blood cells today are 20.91, hemoglobin 10.0, platelet count 137,000. Sodium 129, potassium 4.8, chloride 106, CO2 of 14, BUN 50, creatinine 1.3, glucose 58. ASSESSMENT/PLAN: 1. Intrahepatic cholangiocarcinoma, advanced/metastatic. The patient has had poor tolerance to chemotherapy previously. Her last dose was Gemzar and Abraxane at a reduced dose. We had to hold her last chemotherapy treatment due to decline in overall performance status. We discussed today her options including the possibility of hospice. We did discuss what hospice entails briefly. The patient did not make any final decision and I am not completely aware if she could make the decision fully by herself as she has had her around to help with decision-making up until this point. We will see her again tomorrow and rediscuss. We will also try to get her other family members involved via telephone. Agree with palliative care consult for further discussion. 2. Leukocytosis with possible peritonitis. Agree with intravenous antibiotics. Follow up on cultures. Treat per cultures and sensitivity as indicated. 3. Malignant ascites. Continue to drain therapeutically. 4. Hypotension. Continue to support with intravenous fluids. Management per the primary team. We want to thank you for consulting us. We will continue to follow along and adjust our treatment plan per the patient's hospital course. Dictated by CHARLETTE Guy for Roman Ordoñez MD cc: Roman Ordoñez MD
[2020-02-22] MEDS: FLAGYL 500 MG/NS 500 MG/100 ML IVPB IV SCH (17:55)
[2020-02-23] MEDS: SODIUM CHLORIDE PO SCH ×2 (00:19→12:23)
[2020-02-23] MEDS: TUMS EXTRA STRENGTH PO PRN (00:19)
[2020-02-23] MEDS: VANCOCIN PO SCH ×3 (00:19→08:53)
[2020-02-23] MEDS: ZOFRAN IV PRN ×3 (00:20→08:48)
[2020-02-23] MEDS: MORPHINE IV PRN ×4 (00:20→12:18)
[2020-02-23] MEDS: ZOSYN 3.375 GM in NS 50 ML IV SCH ×3 (00:20→08:48)
[2020-02-23] MEDS: FLAGYL 500 MG/NS 500 MG/100 ML IVPB IV SCH ×4 (00:21→08:54)
[2020-02-23] MEDS: D5 NS 1,000 ML IV SCH (00:21)
[2020-02-23] MEDS: IMODIUM PO PRN (00:36)
[2020-02-23 07:20] LABS: EOS# 0.02 X1000 (0.0-0.7); EOS% 0.1 % (0.0-10.0); HEMATOCRIT 34.1 % (37.0-47.0); HEMOGLOBIN 10.6 g/dL (12.0-16.0); LYMPH# 5.07 X1000 (1.2-3.4); LYMPH% 14.8 % (20.5-51.1); MCH 29.1 PG (27-31); MCHC 31.1 g/dL (33-37); MCV 93.7 FL (81-99); MPV 10.4 FL (7.4-10.4); PLT 141 X1000 (130-400); RBC 3.64 XMIL (4.2-5.4); WBC 34.34 X1000 (4.8-10.8)
[2020-02-23 07:34] LABS: ALB/GLOB RATIO 0.7; ALBUMIN 1.8 g/dL (3.5-5.0); CALCIUM 7.9 mg/dL (8.8-10.2); CREATININE 1.5 mg/dL (0.5-0.9); MAGNESIUM 1.8 mg/dL (1.5-2.7); PHOSPHORUS 3.2 mg/dL (2.7-4.5); POTASSIUM 3.9 mmol/L (3.5-5.1); TOTAL BILIRUBIN 0.32 mg/dL (0.20-1.00); TOTAL PROTEIN 4.3 g/dL (6.3-8.3)
[2020-02-23 07:42] LABS: BANDS 3 % (0-1); LYMPHS 16 % (21-51)
[2020-02-23 07:43] LABS: MONO 11 % (1-9); SEGS 64 % (42-75)
[2020-02-23 07:44] LABS: HYPOCHROM 1+
--- NOTE | 2020-02-23 11:05 | DISCHARGE SUMMARY ---
ADMISSION DATE: 02/19/2020 DISCHARGE DATE: 02/23/2020 DIAGNOSES: 1. Intrahepatic cholangiocarcinoma, advanced, metastatic. 2. Leukocytosis, with possible peritonitis. 3. Malignant ascites. 4. Hypotension. 5. Clostridium difficile colitis. 6. Hypertension. CONSULTS: Roman Ordoñez MD. DIAGNOSTICS: Chest x-ray revealed minimal basal scarring versus subsegmental atelectasis, no definite acute chest pathology by plain radiograph. CT of the head revealed no evidence of acute intracranial pathology. Abdominal ultrasound, ascites, thickened gallbladder wall, however, this is partially due to partial contraction of the gallbladder and the surrounding ascites. Heterogeneous liver with multiple ill-defined hepatic masses consistent with known hepatic metastatic disease, splenomegaly. MICROBIOLOGY: Blood cultures x2 revealed no growth after 48 hours. Influenza screen A and B are negative. Group A strep negative. Throat culture, no group A strep isolated. Ascitic fluid, no growth. Clostridium difficile antigen is positive. Clostridium difficile toxin is positive. HOSPITAL COURSE: Ms. Moreno presented to the emergency room complaining of abdominal pain and a low-grade fever. She was started on Zosyn and Flagyl for possible peritonitis. She was found to have C diff, for which she was started on oral vancomycin. She was rehydrated. She was initially hyponatremic and hyperkalemic. After hydration electrolytes have normalized. After discussions with Dr. Stallworth as well as Oncology. It was decided that the patient did not want to seek any more treatment. She wanted to go home with hospice. This was arranged with [facility] and the patient is being discharged today. DISCHARGE PHYSICAL EXAMINATION: Vitals: Blood pressure is 91/69, with a heart rate of 97, respirations 18, temperature 97.8 degrees oral, with saturations of 96 to 100%. Cardiovascular: Regular rate and rhythm. S1 and S2 appreciated. Pulmonary: She has some crackles at the bases. Gastrointestinal: Abdomen is soft, with bowel sounds in all 4 quadrants. Abdominal catheter is noted intact. Extremities: No clubbing, cyanosis, or edema. Neurologic: She is alert and oriented. DISCHARGE MEDICATIONS: 1. Ambien 10 mg p.o. at bedtime. 2. Vancomycin 125 mg p.o. q.6 hours. 3. Sodium chloride tablets 1 g b.i.d. 4. Zofran 8 mg p.o. q.8 hours p.r.n. nausea and vomiting. 5. Levaquin 500 mg p.o. daily x10 days. 6. Garrett 7.5, 1 q.8 hours. 7. Extra-strength Tums after meals and at bedtime. DISPOSITION: She is being discharged home under the care of [facility] [place]. TIME SPENT: This is a greater than 30 minute discharge. Dictated by NINA Ruiz for Nir Ponce MD cc: NINA Ruiz MD
[2020-02-23] MEDS ORDERED: ZOFRAN IV ONE ×2 (11:45→12:00)
[2020-02-23 11:48] VITALS: BP 101/64
== END 2020-02-23 13:13 | disposition hospice, home (50) | DRG 371 ==
LOC: SUPCPDRO → ED 16:36 → SUATTDRO 23:55 → 2N 23:55 → 3N 02-22 16:55
PROVIDERS: ATTEND Internal Medicine